=== PATIENT | female | born 1955 | race Caucasian/White ===

== ENCOUNTER → 2022-04-17 11:19 | Outpatient (BNVA) | payer MEDICARE, OTHER, SELFPAY | PROVIDERS: PCP Family Medicine; Visit Provider Family Medicine | DX: E11.9 Type 2 diabetes mellitus without complications (principal); I10 Essential (primary) hypertension; J06.9 Acute upper respiratory infection, unspecified; J45.909 Unspecified asthma, uncomplicated; M79.7 Fibromyalgia; Z76.89 Persons encountering health services in other specified circumstances; J01.90 Acute sinusitis, unspecified; B96.89 Other specified bacterial agents as the cause of diseases classified elsewhere | CPT/HCPCS: 80053; 80061; 83036; 84443; 85025; 86140 ==

== ENCOUNTER → 2022-05-12 11:07 | Outpatient (BNVA) | payer OTHER, MEDICARE, SELFPAY | PROVIDERS: PCP Family Medicine; Visit Provider Family Medicine | DX: M79.7 Fibromyalgia (principal); R79.89 Other specified abnormal findings of blood chemistry; E11.9 Type 2 diabetes mellitus without complications | CPT/HCPCS: 84439; 84443; 84445; 84481; 86376 ==

== ENCOUNTER → 2022-07-10 10:21 | Outpatient (BNVA) | payer OTHER, MEDICARE, SELFPAY | PROVIDERS: PCP Family Medicine; Visit Provider Family Medicine | DX: R79.89 Other specified abnormal findings of blood chemistry (principal); E11.9 Type 2 diabetes mellitus without complications | CPT/HCPCS: 80048; 83036; 84439; 84443 ==

== ENCOUNTER 2022-09-23 15:28 | Emergency (ER) | payer OTHER, MEDICARE, SELFPAY ==
[2022-09-23] VITALS (7 sets, daily range): BP systolic 161–183; BP diastolic 99–116; PULSE 86–105; RESP 16–20; TEMP 36.7; O2SAT 91–97
[2022-09-23 17:53] LABS: Basophils % 0.2 %; Hematocrit 44.3 % (37.0-47.0); Lymphocytes # 0.5 10^3/uL (0.8-4.8); Lymphocytes % 9.6 %; Mean Corpuscular HGB Conc 33.9 g/dL (30.0-36.0); Mean Corpuscular Hemoglobin 32.7 pg (28.0-34.0); Mean Corpuscular Volume 96.5 fl (81-99); Mean Platelet Volume 9.3 fL (7.4-10.4); Monocytes # 0.5 10^3/uL (0.2-0.9); Monocytes % 9.4 %; Neutrophils # 3.96 10^3/uL (1.8-7.7); Neutrophils % 80.6 %; Nucleated Red Blood Cells % 0 %; Platelet Count 195 10^3/cmm (130-400); Red Blood Count 4.59 10^6/uL (4.1-5.3); Red Cell Distribution Width 12.1 % (12.1-15.1); White Blood Count 4.9 10^3/uL (4.0-10.0)
--- NOTE | 2022-09-23 18:20 | XRR_ITS ---
PROCEDURE INFORMATION: Exam: XR Chest Exam date and time: 09/23/2022 6:26 PM Age: 67 years old Clinical indication: Chest wall pain; Additional info: Cp TECHNIQUE: Imaging protocol: Radiologic exam of the chest. Views: 1 view. COMPARISON: No relevant prior studies available. FINDINGS: Lungs: Unremarkable. No consolidation. Pleural spaces: Unremarkable. No pleural effusion. No pneumothorax. Heart/Mediastinum: Unremarkable. No cardiomegaly. Bones/joints: Unremarkable. XR/XR chest 1V portable [id number] IMPRESSION: No acute findings.
--- NOTE | 2022-09-23 18:29 | W.ED.GENADLT ---
HPI - General Adult General: Chief complaint: Headache Stated complaint: Pain in whole body Time Seen by Provider: 09/23/22 18:12 Source: patient Mode of arrival: ambulatory Limitations: no limitations History of Present Illness: 67-year-old female who states she has been having pain all over over the last 2 days. She states it started with a headache and now she is hurting all over states she is got back some abdominal leg knee and arm pain. She states that this just is a sharp aching pain all over her body she rates a 7 out of 10 she states that headache is not the worst headache of life it was not sudden onset. She denies any fever she has had some nausea vomiting feels like she may be dehydrated. Associated symptoms: Reports chest pain, headache(s), nausea and vomiting; Deny dyspnea or rash Review of Systems Const: Reports: body aches and change in appetite; Denies: fever(s) or chills Eyes: Denies: blurry vision or eye discomfort ENMT: Denies: throat pain or dental pain Card: Reports: chest pain Resp: Denies: dyspnea GI: Reports: abdominal pain, nausea and vomiting; Denies: diarrhea : Denies: dysuria Musc: Reports: neck pain, back pain, extremity pain and joint pain Skin/Breast: Denies: rash Neuro: Reports: headache(s) PFSH ED PFSH: Family History Mother Diabetes Father Diabetes Social History Smoking and tobacco status: never smoked Second hand smoke exposure: No Smoking risk assessment/counseling performed?: No Alcohol intake: never Substance/Drug Use: never Adopted: No Caregiver/support person: No Lives independently: Yes Household members: family Marital status: Number of children: 0 service: No Current gender identity: Female Female Reproductive History: Spontaneous abortions: No Physical Exam Const: COMMON NORMALS: no acute distress, patient oriented x3 and healthy appearing HENMT: COMMON NORMALS: normocephalic and atraumatic HEAD & SCALP: normocephalic and atraumatic Eye: COMMON NORMALS: Equal, round and reactive pupils present and EOMs intact bilaterally PUPIL: Yes Equal, round and reactive pupils present Neck/C-Spine: COMMON NORMALS: full ROM and supple Chest: COMMONS NORMALS: normal inspection of the chest and normal palpation of entire chest wall Resp: COMMON NORMALS: normal respiratory effort, No retractions, No use of accessory muscles and clear to auscultation bilaterally AUSCULTATION: clear to auscultation bilaterally Cardio: COMMON NORMALS: regular rate, regular rhythm and No murmurs present (Cardio) RATE: regular rate RHYTHM: regular rhythm GI: COMMON NORMALS: Normal to inspection, nondistended, normoactive bowel sounds present, Soft to palpation, non-tender and no masses PALPATION: Yes Soft to palpation Extremity: COMMON NORMALS: normal to inspection and full ROM Neuro: COMMON NORMALS: patient oriented x3, moves all extremities and no focal motor deficits Psych: COMMON NORMALS: mental status grossly normal, Normal thought process present and cooperative THOUGHT PROCESS: Normal thought process present Skin: COMMON NORMALS: no rashes or lesions noted and no wounds GENERAL SKIN EXAM: no rashes or lesions noted Course Vital Signs: Vital signs: Vital Signs Temperature 98.0 F 09/23/22 15:42 Pulse Rate 86 09/23/22 20:09 Respiratory Rate 20 H 09/23/22 18:57 Blood Pressure 183/108 09/23/22 20:09 Pulse Oximetry 96 09/23/22 20:09 Oxygen Delivery Me thod Room Air 09/23/22 20:09 MDM - General Adult Medical Decision Making Patient presents here with headache along with full body aches she is well-appearing here no fever vital signs are normal blood work here is normal no signs of meningitis or subarachnoid hemorrhage her head CT is normal she feels improved here after meds we will prescribe her hydrocodone she is to follow-up with her PCP and return if worsening. Medical Records I reviewed the patient's medical records. Lab Data I reviewed the patient's lab results. 09/23/22 17:46 09/23/22 17:46 Radiology Impressions Chest X-Ray 09/23/22 18:20 IMPRESSION: No acute findings. Head CT 09/23/22 18:44 IMPRESSION: No acute intracranial abnormality. Laboratory Results WBC 4.9 10^3/uL (4.0-10.0) 09/23/22 17:46 RBC 4.59 10^6/uL (4.1-5.3) 09/23/22 17:46 Hgb 15.0 g/dL (11.5-15.3) 09/23/22 17:46 Hct 44.3 % (37.0-47.0) 09/23/22 17:46 MCV 96.5 fl (81-99) 09/23/22 17:46 MCH 32.7 pg (28.0-34.0) 09/23/22 17:46 MCHC 33.9 g/dL (30.0-36.0) 09/23/22 17:46 RDW 12.1 % (12.1-15.1) 09/23/22 17:46 Plt Count 195 10^3/cmm (130-400) 09/23/22 17:46 MPV 9.3 fL (7.4-10.4) 09/23/22 17:46 Neut % (Auto) 80.6 % 09/23/22 17:46 Lymph % (Auto) 9.6 % 09/23/22 17:46 [place] % (Auto) 9.4 % 09/23/22 17:46 Eos % (Auto) 0.0 % 09/23/22 17:46 Baso % (Auto) 0.2 % 09/23/22 17:46 Neut # (Auto) 3.96 10^3/uL (1.8-7.7) 09/23/22 17:46 Lymph # (Auto) 0.5 10^3/uL (0.8-4.8) L 09/23/22 17:46 [place] # (Auto) 0.5 10^3/uL (0.2-0.9) 09/23/22 17:46 Eos # (Auto) 0.0 10^3/uL (0.0-0.8) 09/23/22 17:46 Baso # (Auto) 0.0 10^3/uL (0.0-0.1) 09/23/22 17:46 Nucleated RBC % (auto) 0 % 09/23/22 17:46 Nucleated RBCs # 0.0 /100WBC 09/23/22 17:46 Sodium 134 mmol/L (136-145) L 09/23/22 17:46 Potassium 4.1 mmol/L (3.5-5.1) 09/23/22 17:46 Chloride 101 mmol/L (98-107) 09/23/22 17:46 Carbon Dioxide 22 mmol/L (22-29) 09/23/22 17:46 Anion Gap 15.1 (5-19) 09/23/22 17:46 BUN 17 mg/dL (8-23) 09/23/22 17:46 Creatinine 0.7 mg/dL (0.5-0.9) 09/23/22 17:46 GFR Calculation 83.5 mL/min (90-130) L 09/23/22 17:46 Glucose 158 mg/dL (65-115) H 09/23/22 17:46 Calculated Osmolality 283 mOsm/kg (285-295) L 09/23/22 17:46 Calcium 8.8 mg/dL (8.5-10.5) 09/23/22 17:46 Total Bilirubin 0.2 mg/dL (0.15-1.2) 09/23/22 17:46 AST 16 U/L (0-32) 09/23/22 17:46 ALT 17 U/L (0-33) 09/23/22 17:46 Alkaline Phosphatase 69 U/L (35-105) 09/23/22 17:46 Total Protein 7.0 g/dL (6.6-8.7) 09/23/22 17:46 Albumin 4.1 g/dL (3.5-5.2) 09/23/22 17:46 Globulin 2.9 g/dL (1.3-4.6) 09/23/22 17:46 Lipase 14 U/L (13-60) 09/23/22 17:46 EKG Data EKG 1: I personally reviewed and interpreted this EKG as follows: EKG interpretation date: 09/23/22 EKG interpretation time: 18:31 Interpretation: nsr hr [address] or t wave abnormalities qrs 85 qtc 399 Computer generated interpretation: Chest X-Ray 09/23/22 18:20 IMPRESSION: No acute findings. Head CT 09/23/22 18:44 IMPRESSION: No acute intracranial abnormality. Discharge Plan Discharge Patient Disposition: Home Clinical Impression: Headache, Body aches Condition: Stable Prescriptions: New hydrocodone-acetaminophen 5-325 mg tablet 1 tab PO Q6H PRN (Reason: pain) Qty: 14 0RF No Action meloxicam 15 mg tablet 15 mg PO DAILY Qty: 60 5RF Hold Instructions: Order Change metformin 1,000 mg tablet 1,000 mg PO BID Qty: 180 1RF verapamil 120 mg capsule,ext rel. pellets 24 hr 120 mg PO DAILY Qty: 90 1RF duloxetine 60 mg capsule,delayed release(DR/EC) 60 mg PO DAILY Qty: 90 1RF prednisone 20 mg tablet See Rx Instructions .Route .COMPLEX Qty: 11 0RF Rx Instructions: 2 tabs x 3 days, then 1 tab x 3 days, then 1/2 tab x 3 days. glipizide 10 mg tablet See Rx Instructions .ROUTE .COMPLEX Qty: 60 2RF Dose Instruction: TAKE 1/2 TAB DAILY FOR 1 WEEK, THEN 1/2 TAB TWICE DAILY FOR 1 WEEK, THEN 1 TAB TWICE DAILY Rx Instructions: TAKE 1/2 TAB DAILY FOR 1 WEEK, THEN 1/2 TAB TWICE DAILY FOR 1 WEEK, THEN 1 TAB TWICE DAILY Discharge Orders: Discharge ED (Routine); Ordered 09/23/22 Ordered By: Vicky Carrasco Referrals: Pantera Wang, [Primary Care Provider] - 1-3 days Discharge Diet: Advance as tolerated Discharge Activity: Resume usual activity Patient Instructions: General Headache (ED) Coding Level of Care Code ED Project Structural Engineer for Dre Mcguire
--- NOTE | 2022-09-23 18:31 | ECG_ITS ---
[facility] Test Date: 2022-09-23 Pat Name: Chiquita Madden Department: Room: Gender: Female Sas Clinical Programmer: : 1955 Requested By: Vicky Carrasco Order Number: [id number] Leno MD: Caitlyn Luis M.D. Measurements Intervals [place] Rate: 90 P: 18 ND: 164 QRS: 16 QRSD: 85 T: 31 QT: 352 QTc: 431 Interpretive Statements SINUS RHYTHM No previous ECG available for comparison Electronically Signed On 09-24-2022 0:22:14 CDT by Caitlyn Luis M.D. [email or web address]
[2022-09-23 18:35] LABS: Alanine Aminotransferase 17 U/L (0-33); Albumin Level 4.1 g/dL (3.5-5.2); Alkaline Phosphatase 69 U/L (35-105); Anion Gap 15.1 (5-19); Aspartate Amino Transferase 16 U/L (0-32); Blood Urea Nitrogen 17 mg/dL (8-23); Calcium 8.8 mg/dL (8.5-10.5); Carbon Dioxide 22 mmol/L (22-29); Chloride 101 mmol/L (98-107); Globulin 2.9 g/dL (1.3-4.6); Glucose 158 mg/dL (65-115); Lipase 14 U/L (13-60); Osmolality Calculated 283 mOsm/kg (285-295); Potassium 4.1 mmol/L (3.5-5.1); Sodium 134 mmol/L (136-145); Total Bilirubin 0.2 mg/dL (0.15-1.2)
--- NOTE | 2022-09-23 18:44 | CTR_ITS ---
PROCEDURE INFORMATION: Exam: CT Head Without Contrast Exam date and time: 09/23/2022 7:12 PM Age: 67 years old Clinical indication: Pain; Headache; Additional info: [place] TECHNIQUE: Imaging protocol: Computed tomography of the head without contrast. Radiation optimization: All CT scans at this facility use at least one of these dose optimization techniques: automated exposure control; mA and/or kV adjustment per patient size (includes targeted exams where dose is matched to clinical indication); or iterative reconstruction. REPORTING DATA: Count of CT and Cardiac NM exams in prior 12 months: This patient has received 0 known CTs and 0 known cardiac nuclear medicine studies in the 12 months prior to the current study. COMPARISON: No relevant prior studies available. RADIATION DOSE METRICS: Total DLP (mGy-cm): 1010 FINDINGS: Brain: Normal. No hemorrhage. Unremarkable white matter. No mass effect. Cerebral ventricles: No ventriculomegaly. Paranasal sinuses: Visualized sinuses are unremarkable. No fluid levels. Mastoid air cells: Visualized mastoid air cells are well aerated. Bones/joints: Unremarkable. No acute fracture. Soft tissues: Unremarkable. CT/CT head wo con* [id number] IMPRESSION: No acute intracranial abnormality.
[2022-09-23] MEDS: ondansetron 2 mg/ML SDV 2 mL 4 MG IVP (18:48)
[2022-09-23] MEDS: diphenhydrAMINE 50 mg/mL SDV 1mL 25 MG IVP (18:48)
[2022-09-23] MEDS: HYDROmorphone 1 mg/mL INJ 1 mL 0.5 MG IVP (18:49)
[2022-09-23] MEDS: sodium chloride 0.9% 1,000 ML 999 ML IV (18:58)
[2022-09-23 19:01] LABS: Glomerular Filtration Rate 83.5 mL/min (90-130)
--- NOTE | 2022-09-23 19:48 | PC.NURSE ---
Nurse attempted to obtain urine specimen. Pt stated that she would not produce a urine specimen at this time. Dr Carrasco notified.
[2022-09-23] MEDS: labetalol 5 mg/mL SDV 20mL 10 MG IVP (20:18)
== END 2022-09-23 21:12 | disposition home or self-care (01) ==
PROVIDERS: Nurse Practitioner Family; Emergency Provider Emergency Medicine; PCP Family Medicine
DX: R51.9 Headache, unspecified (principal); R52 Pain, unspecified; Z79.84 Long term (current) use of oral hypoglycemic drugs
CPT/HCPCS: 36415; 70450; 71045; 80053; 83690; 85025; 93005; 96374; 96375; 99285; J1170; J1200; J2405; J3490; J7030

== ENCOUNTER → 2022-10-01 13:01 | Outpatient (BNVA) | payer OTHER, MEDICARE, SELFPAY | PROVIDERS: PCP Family Medicine; Visit Provider Specialist | DX: M65.332 Trigger finger, left middle finger (principal); E11.9 Type 2 diabetes mellitus without complications; M79.7 Fibromyalgia; Z79.84 Long term (current) use of oral hypoglycemic drugs | CPT/HCPCS: 36415; 73130; 80053; 81001; 83036; 85025; 85651; 86140; 86200; 86431; 86705; 86706; 86709; 86803; 87340; 99204 ==

== ENCOUNTER 2022-10-24 06:50 | Day surgery (SDC) | payer MEDICARE, OTHER, SELFPAY ==
[2022-10-24] VITALS (10 sets, daily range): BP systolic 136–178; BP diastolic 104–120; PULSE 68–91; RESP 14–16; TEMP 36.1–36.3; O2SAT 94–99; BMI 29.0
--- NOTE | 2022-10-24 07:11 | W.PM.OPSUD ---
Surgery/Procedure H&P Update DATE OF PROCEDURE: October 24, 2022 DATE H&P PERFORMED: 10/15/22 H&P UPDATE INFORMATION: I have reviewed H&P completed within last 30 days, I have examined patient prior to procedure, No changes to prior documentation and H&P is in [facility] EMR on date indicated PLANNED PROCEDURE: Operation Date: 10/24/22 08:25 Proposed Procedures p LEFT HAND LONG FINGER TRIGGER RELEASE 55153, M65.30(Left) - Yarely Hurd MD Related Problem List Diagnoses (1) Trigger finger, left middle finger:
[2022-10-24] MEDS: sodium chloride 0.9% 1,000 ML 30 ML IV (07:18)
[2022-10-24] MEDS: acetaminophen 1,000 MG/100 ML PIGGYBACK 400 MG IV (07:19)
--- NOTE | 2022-10-24 07:19 | ANES.PREANE2 ---
Pre-Anesthetic Assessment Height/Weight: Height 1.7 m Weight 83.915 kg Temp Pulse Resp BP Pulse Ox O2 Del Method 97.2 F L 91 16 178/120 96 Room Air 10/24/22 07:05 10/24/22 07:05 10/24/22 07:05 10/24/22 07:05 10/24/22 07:05 10/24/22 07:05 Preop Diagnosis: trigger finger Operation Date: 10/24/22 08:25 Proposed Procedures p LEFT HAND LONG FINGER TRIGGER RELEASE [id number], M65.30(Left) - Yarely Hurd MD Familial anesthetic complications: PONV Was Beta Naren taken within 24 hours: N/A Last intake: Intake Last Liquid Date 10/23/22 Last Liquid Time 00:00 Last Solid Date 10/23/22 Last Solid Time 22:00 Social No alcohol and No tobacco Exam alert, oriented x 3, clear to auscultation bilaterally and regular rate & rhythm Airway Submandibular: within normal limits Cervical ROM: within normal limits Mallampati: Class III Dentition: full Comments: Comments: thyromental distance <3 finger breaths Pulmonary Asthma and Sleep Apnea CV/HEM Arrythmia (intermittent tachycardia (rare) previous cardiac workup per patient) and Hypertension None reported Hepatic None reported GI None reported Metabolic Diabetes Mellitus [facility] Fibromyalgia Neuropsych None reported Anesthetic Plan ASA status: 2 Anesthesia: Choice Other: TIVA due to PONV Medications/Allergies Home Medications Medication Instructions Recorded Confirmed Last Taken Type meloxicam 15 mg tablet 15 mg PO DAILY #60 tabs 07/15/22 10/23/22 10/21/22 Rx hydrocodone 5 mg-acetaminophen 325 1 tab PO Q6H PRN pain #14 tabs 09/23/22 10/23/22 Unknown Rx mg tablet glipizide 10 mg tablet See Rx Instructions .Route 09/29/22 10/23/22 10/22/22 Rx .COMPLEX #180 tabs amitriptyline 25 mg tablet 25 mg PO DAILY #30 tabs 10/02/22 10/24/22 Unknown Rx gabapentin 600 mg tablet 300 mg PO BID #60 tabs 10/02/22 10/23/22 Unknown Rx duloxetine 60 mg capsule,delayed 60 mg PO DAILY 10/23/22 10/23/22 10/22/22 History release metformin 1,000 mg tablet 1,000 mg PO BID 10/23/22 10/23/22 10/22/22 History verapamil 120 mg 24 hr 120 mg PO BID 10/23/22 10/23/22 10/22/22 History capsule,extended release hydrocodone 5 mg-acetaminophen 325 1 tab PO Q4H PRN pain 7 days #30 10/24/22 Unknown Rx mg tablet tabs loratadine 10 mg tablet 10 mg PO DAILY 10/24/22 10/24/22 10/24/22 History Allergies Allergy/AdvReac Type Severity Reaction Status Date / Time azithromycin Allergy Mild ADR-Vomitin Verified 10/15/22 09:22 g PFSH Anesthesia Medical History (Updated 10/24/22 @ 07:14 by Yarely Hurd MD) Essential hypertension Non-insulin dependent type 2 diabetes mellitus Surgical History (Updated 10/15/22 @ 09:19 by Patricio Tamez NP) Hx of appendectomy Hx of cholecystectomy Hx of foot surgery Hx of hysterectomy Hx of ovarian cystectomy Family History (Updated 10/15/22 @ 09:20 by Patricio Tamez NP) Mother Diabetes Father Diabetes Denies family history of Clotting disorder Anesthesia complication Bleeding disorder Social History Smoking and tobacco status: never smoked Second hand smoke exposure: No Smoking risk assessment/counseling performed?: No Alcohol intake: never Substance/Drug Use: never Adopted: No Caregiver/support person: No Lives independently: Yes Household members: family Marital status: Number of children: 0 service: No Current gender identity: Female Female Reproductive History Spontaneous abortions: No Data Anesthesia Cardiac Studies: No Data to Display
[2022-10-24] MEDS: CELEcoxib 200 mg Capsule 400 MG PO (07:20)
[2022-10-24] MEDS: gabapentin 300 mg Capsule PO (07:21)
[2022-10-24] MEDS: ondansetron 2 mg/ML SDV 2 mL 4 MG IVP (07:24)
[2022-10-24] MEDS: scopolamine 1.5 Patch 1 PATCH TRANSDERMA (07:24)
[2022-10-24] MEDS: diphenhydrAMINE 50 mg/mL SDV 1mL 12.5 MG IVP (07:26)
[2022-10-24 07:27] LABS: Glucose Point of Care 166 mg/dL (70-110)
[2022-10-24] MEDS: ceFAZolin 2,000 MG in sodium chloride 0.9% (plus) 50 ML 100 MG IV (08:40)
--- NOTE | 2022-10-24 09:39 | PM.OP ---
Operative Report Date of procedure: October 24, 2022 Pre-op diagnosis: Left middle finger trigger finger Post-op diagnosis: Left middle finger trigger finger Post-op findings: Significant inflammation and thickening of the A1 pete and tendons. Procedure done: Release left middle finger trigger finger Pathology: none sent Surgeon: Yarely Hurd Java Web Application Developer: None Anesthesia: MAC (With local, ASA 2) Estimated blood loss (mL): 1 Tourniquet time (min): 17 (At 250 mmHg) IV fluids (mL): 800 Urine output (mL): 0 (No Armstrong) Complications: None Findings: Significant tenosynovitis and thickening of the A1 pete Condition: stable Disposition: PACU (Then return to same-day surgery for discharge to home) Brief History: Chiquita Madden is a 67 year old female patient who is presents today for left middle finger trigger finger release.? She states the triggering has been going on for 2 months and sends pain up her entire arm. The patient was seen in the office. Treatment options were discussed and questions were answered. She wished to proceed with left long finger trigger release. Consents were signed. Procedure: Patient was brought to the operating theater. She was placed on the operating room table. A MAC anesthesia was delivered along with local on the field. The patient tolerated this well. She received Ancef 2 g prophylactically preoperatively. A tourniquet was placed high on the arm and was elevated following exsanguination of the arm. Tourniquet time was 17 minutes at 250 mmHg. Surgical pause was performed prior to commencement of the surgical procedure. At the time of the surgical pause we identified the site and side of surgery. We also identified the patient's identity and appropriate administration of IV antibiotics. Following the surgical pause, an incision was made along the distal palmar crease beneath the long finger. Dissection continued through the skin to the subcutaneous tissues using a scalpel. Blunt dissection was then utilized to spread soft tissues and allow access to the A1 pete. It was then incised longitudinally and sharply using a knife. This was accomplished without difficulty and atraumatically. Once the A1 pete was released, tendons were brought up out of the wound and evaluated. There were no gross masses on the tendons. Tendons were returned to normal position. We then irrigated the wound and subsequently closed it with 3-0 nylon with an interrupted mattress type suture. Following closure of the wound, the wound was injected with local anesthetic into the subcutaneous tissues. Sterile dressing was then placed consisting of Dermabond, OpSite, fluffed fluffs, sterile soft roll, and an Santos wrap. The patient was returned to recovery in satisfactory condition. She will be discharged home to follow-up with me in the office. There were no complications and no specimens. Related Problem List Diagnoses (1) Trigger finger, left middle finger:
--- NOTE | 2022-10-24 17:27 | ANE.PACU2 ---
Inpatient post-anesthesia follow up: Airway intact: Yes Vital signs: Temperature 97.4 F Pulse Rate 70 Respiratory Rate 16 Blood Pressure 173/114 Pulse Oximetry 97 Oxygen Delivery Me thod Room Air Oxygen Flow Rate 6 Fraction of Inspir ed Oxygen Hydration adequate: Yes Nausea and vomiting: No Pain level: 2 Mental status: Baseline
== END 2022-10-24 10:35 | disposition home or self-care (01) ==
PROVIDERS: PCP Family Medicine; Visit Provider Specialist
PROC: (CPT 26055; principal; 2022-10-24 08:15)
DX: M65.332 Trigger finger, left middle finger (principal); J45.909 Unspecified asthma, uncomplicated; E11.9 Type 2 diabetes mellitus without complications; Z79.891 Long term (current) use of opiate analgesic; Z79.4 Long term (current) use of insulin; I10 Essential (primary) hypertension
CPT/HCPCS: 26055; 36416; 82962; J0131; J0690; J1200; J2405; J2704; J3010; J3490; J7030

== ENCOUNTER → 2022-11-06 08:47 | Outpatient (BNVA) | payer MEDICARE, OTHER, SELFPAY | PROVIDERS: PCP Family Medicine; Visit Provider Nurse Practitioner Family | DX: Z98.890 Other specified postprocedural states (principal) | CPT/HCPCS: 99024 ==

== ENCOUNTER → 2022-12-17 09:16 | Outpatient (BNVA) | payer MEDICARE, OTHER, SELFPAY | PROVIDERS: PCP Family Medicine; Visit Provider Specialist | DX: M25.562 Pain in left knee (principal); M17.12 Unilateral primary osteoarthritis, left knee; G89.29 Other chronic pain | CPT/HCPCS: 73560; 73565; 99214 ==

== ENCOUNTER → 2023-02-16 11:00 | Outpatient (BNVA) | payer MEDICARE, OTHER, SELFPAY | PROVIDERS: PCP Family Medicine; Visit Provider Family Medicine | DX: I10 Essential (primary) hypertension (principal); E11.9 Type 2 diabetes mellitus without complications; Z00.00 Encounter for general adult medical examination without abnormal findings; M79.7 Fibromyalgia | CPT/HCPCS: 80053; 80061; 83036; 84443; 85025 ==

== ENCOUNTER → 2023-02-23 16:56 | Outpatient (BNVA) | payer MEDICARE, OTHER, SELFPAY | PROVIDERS: PCP Family Medicine; Visit Provider Family Medicine | DX: I10 Essential (primary) hypertension (principal); M54.2 Cervicalgia; G89.29 Other chronic pain; M25.562 Pain in left knee; M79.7 Fibromyalgia; M17.12 Unilateral primary osteoarthritis, left knee; R26.89 Other abnormalities of gait and mobility | CPT/HCPCS: 81003 ==

== ENCOUNTER 2023-03-04 14:59 | Outpatient (CLI) | payer MEDICARE, SELFPAY ==
--- NOTE | 2023-03-04 15:30 | MM_ITS ---
WS: [id number] BILATERAL 3D TOMOSYNTHESIS DIGITAL SCREENING MAMMOGRAPHY WITH CAD CLINICAL INFORMATION: SCREEN HISTORY: Screening mammogram. No current complaints. COMPARISON: None. TECHNIQUE: Bilateral CC and MLO views. FINDINGS: Scattered fibroglandular densities bilaterally. No suspicious focal mass, asymmetry, calcifications, or architectural distortion. No evidence of malignancy. A few incidental punctate calcifications. IMPRESSION: MM/[place] [id number] BI-RADS: 2-Benign FOLLOW UP: 1 Year Follow-up Recommend return to annual screening mammography.
== END 2023-03-04 15:00 | disposition home or self-care (01) ==
LOC: RAD 15:00
PROVIDERS: PCP Family Medicine; Visit Provider Family Medicine
DX: Z12.31 Encounter for screening mammogram for malignant neoplasm of breast (principal)
CPT/HCPCS: 77063; 77067

== ENCOUNTER 2023-04-09 10:47 | Outpatient (RCR) | payer MEDICARE, OTHER, SELFPAY | END 2023-05-06 23:59 | disposition home or self-care (01) | LOC: SPT 10:47 | PROVIDERS: PCP Family Medicine; Visit Provider Family Medicine | DX: M54.2 Cervicalgia (principal); M25.562 Pain in left knee; M79.7 Fibromyalgia | CPT/HCPCS: 97113; 97161 ==

== ENCOUNTER 2023-05-07 06:00 | Outpatient (RCR) | payer MEDICARE, OTHER, SELFPAY | END 2023-06-04 23:59 | disposition home or self-care (01) | LOC: SPT 06:00 | PROVIDERS: PCP Family Medicine; Visit Provider Family Medicine | DX: M54.2 Cervicalgia (principal); G89.29 Other chronic pain; M79.7 Fibromyalgia | CPT/HCPCS: 97113; 97530 ==

== ENCOUNTER 2023-05-20 20:00 | Outpatient (CLI) | payer MEDICARE, OTHER, SELFPAY | END 2023-05-20 20:01 | disposition home or self-care (01) | LOC: SLEEP 05-21 05:08 | PROVIDERS: PCP Family Medicine; Visit Provider Family Medicine | DX: G47.33 Obstructive sleep apnea (adult) (pediatric) (principal); G47.61 Periodic limb movement disorder | CPT/HCPCS: 95810 ==

== ENCOUNTER → 2023-05-27 07:44 | Outpatient (BNVA) | payer MEDICARE, OTHER, SELFPAY | PROVIDERS: PCP Family Medicine; Visit Provider Specialist | DX: M17.12 Unilateral primary osteoarthritis, left knee (principal) | CPT/HCPCS: 20610; 99213; J7326 ==

== ENCOUNTER → 2023-06-23 12:15 | Outpatient (BNVA) | payer MEDICARE, SELFPAY | PROVIDERS: PCP Family Medicine; Visit Provider Family Medicine | DX: E11.9 Type 2 diabetes mellitus without complications (principal) | CPT/HCPCS: 83036 ==

== ENCOUNTER → 2023-07-17 13:28 | Outpatient (BNVA) | payer MEDICARE, OTHER, SELFPAY | PROVIDERS: PCP Family Medicine; Visit Provider Family Medicine | DX: E11.9 Type 2 diabetes mellitus without complications (principal); E87.6 Hypokalemia; M79.7 Fibromyalgia | CPT/HCPCS: 80048; 80061; 83036; 84439; 84443 ==

== ENCOUNTER 2023-08-23 11:30 | Emergency (ER) | payer MEDICARE, SELFPAY ==
[2023-08-23 11:34] VITALS: BP 131/91; PULSE 102; RESP 18; TEMP 36.6; O2SAT 93
--- NOTE | 2023-08-23 11:39 | XRR_ITS ---
PROCEDURE INFORMATION: Exam: XR Left Knee Exam date and time: 08/23/2023 2:08 PM Age: 68 years old Clinical indication: Injury or trauma; Other: Lt knee pain; Patient HX: Lt kneepain post fall; Additional info: Lt shoulder pain post fall TECHNIQUE: Imaging protocol: Radiologic exam of the left knee. Views: 3 views. COMPARISON: CR XR knees AP WB w LT lmt ORTH 12/17/2022 9:18 AM FINDINGS: Bones/joints: There is mild spurring involving the medial femoral condyle and medial tibial plateau along with mild narrowing of the medial joint space. No fracture or joint effusion noted. Soft tissues: Normal. XR/XR knee LT 3V* [id number] IMPRESSION: Osteoarthritis without fracture
--- NOTE | 2023-08-23 13:13 | W.ED.EXTPRO ---
HPI - Extremity Problem General: Chief complaint: Extremity Injury, Lower Stated complaint: left knee pain Time Seen by Provider: 08/23/23 13:11 History of Present Illness: 68-year-old female comes in today for complaints of injury to the left knee. Patient reports tripping over her dog and striking her left knee on the ground. Patient reports pain and discomfort to the left knee. Patient reports increased pain with weightbearing. Patient moves all extremities otherwise well. Patient has a history of fibromyalgia, diabetes mellitus type 2, hypertension. Review of Systems General: Reports: 10 or more systems reviewed and unremarkable except in HPI and below Musc: Reports: joint pain (Left knee) PFSH ED PFSH: Medical History Essential hypertension Non-insulin dependent type 2 diabetes mellitus Surgical History Hx of appendectomy Hx of hysterectomy Hx of cholecystectomy Hx of foot surgery Hx of ovarian cystectomy Family History Mother Diabetes Father Diabetes Denies family history of Clotting disorder Anesthesia complication Bleeding disorder Social History Smoking and tobacco/nicotine status: never used tobacco/nicotine Second hand smoke exposure: No Alcohol intake: never Substance/Drug Use: never Adopted: No Caregiver/support person: No Lives independently: Yes Household members: family Marital status: Number of children: 0 service: No Current gender identity: Female Female Reproductive History: Spontaneous abortions: No Physical Exam Const: COMMON NORMALS: alert HENMT: COMMON NORMALS: normocephalic HEAD & SCALP: normocephalic Neck/C-Spine: COMMON NORMALS: full ROM Chest: COMMONS NORMALS: normal palpation of entire chest wall Resp: COMMON NORMALS: normal respiratory effort and clear to auscultation bilaterally AUSCULTATION: clear to auscultation bilaterally Cardio: COMMON NORMALS: regular rate and regular rhythm RATE: regular rate RHYTHM: regular rhythm GI: COMMON NORMALS: non-tender Back/Pelvis: COMMON NORMALS: thoracic and lumbar spine normal to inspection Extremity: LEFT LOWER EXTREMITY: Yes knee joint (Anterior abrasion, minimal swelling, no deformity) Left knee: Yes inspection, Yes palpation and Yes ROM Neuro: SENSORIUM/ORIENTATION: Yes alert Skin: TRAUMA: abrasion (Left knee) Course Vital Signs: Vital signs: Vital Signs Temperature 98 F 08/23/23 11:34 Pulse Rate 102 H 08/23/23 11:34 Respiratory Rate 18 08/23/23 11:34 Blood Pressure 131/91 08/23/23 11:34 Pulse Oximetry 93 08/23/23 11:34 Oxygen Delivery Me thod Room Air 08/23/23 11:34 MDM - Extremity (Nontraumatic) Medical Decision Making Patient comes in today for injury to the left knee. On exam patient has an abrasion to the anterior aspect of the knee. Minimal swelling and normal range of motion is noted. Patient has increased pain with ambulation. Differential diagnosis includes contusion, abrasion, fracture, dislocation. X-rays noted arthritic changes in the shoulder and the knee without any signs of fracture. No signs of dislocation or also noted. Reviewed exam with patient with recommendations for treatment and follow-up. Patient reported understanding agreed to plan. X-ray notes no fracture. Reviewed exam with patient with recommendations for treatment of abrasion and for treatment of pain. Patient reports understanding and agreed to plan. XR interpretation done by ED provider, pending radiology final review Discharge Plan Discharge Patient Disposition: Home Clinical Impression: Fall from slip, trip, or stumble Qualifiers: Encounter type: initial encounter Qualified Code(s): W01.0XXA - Fall on same level from slipping, tripping and stumbling without subsequent striking against object, initial encounter Abrasion of knee, left Qualifiers: Encounter type: initial encounter Qualified Code(s): S80.212A - Abrasion, left knee, initial encounter Left shoulder pain Qualifiers: Chronicity: unspecified Qualified Code(s): M25.512 - Pain in left shoulder Condition: Stable Prescriptions: New hydrocodone-acetaminophen 5-325 mg tablet 1 tab PO Q6H PRN (Reason: pain) Qty: 10 0RF bacitracin 500 unit/gram ointment 1 applic topical BID Qty: 14 0RF No Action Gel-One 30 mg/3 mL syringe 3 ml intra-articular ONCE Qty: 3 0RF Rx Instructions: One injection to the left knee Appt: Pending metformin 1,000 mg tablet See Rx Instructions .ROUTE .COMPLEX Qty: 180 2RF Dose Instruction: TAKE 1 TABLET BY MOUTH TWICE A DAY Rx Instructions: TAKE 1 TABLET BY MOUTH TWICE A DAY glipizide 5 mg tablet 5 mg PO BID Qty: 60 5RF lisinopril 40 mg tablet 40 mg PO DAILY Qty: 90 3RF duloxetine 60 mg capsule,delayed release(DR/EC) See Rx Instructions .ROUTE .COMPLEX Qty: 90 1RF Dose Instruction: TAKE 1 CAPSULE BY MOUTH EVERY DAY Rx Instructions: TAKE 1 CAPSULE BY MOUTH EVERY DAY verapamil 120 mg capsule,ext rel. pellets 24 hr See Rx Instructions .ROUTE .COMPLEX Qty: 90 1RF Dose Instruction: TAKE 1 CAPSULE BY MOUTH EVERY DAY Rx Instructions: TAKE 1 CAPSULE BY MOUTH EVERY DAY celecoxib 100 mg capsule See Rx Instructions .ROUTE .COMPLEX Qty: 60 2RF Dose Instruction: TAKE 1 TABLET BY MOUTH TWICE A DAY Rx Instructions: TAKE 1 TABLET BY MOUTH TWICE A DAY loratadine 10 mg Tablet 10 mg PO DAILY Discharge Orders: Discharge ED (Routine); Ordered 08/23/23 Ordered By: Renzo Thibodeaux Referrals: Pantera Wang, [Primary Care Provider] - Discharge Diet: Usual diet Discharge Activity: Increase activity as tolerated Patient Instructions: Abrasion (ED), Musculoskeletal Pain (ED) Activity Restrictions/Additional Instructions: Clean abrasion with mild soap and water twice a day and cover with antibiotic ointment until healed. Use acetaminophen and ibuprofen to control pain. Use hydrocodone for severe pain. Follow-up with primary care for further instructions. Return to ED for new concerns. Coding Level of Care Code ED Car Sales Representative for Dre Mcguire
[2023-08-23] MEDS: HYDROcodone-acetaminophen 10-325 mg Tablet 1 TAB PO (14:04)
--- NOTE | 2023-08-23 14:07 | XRR_ITS ---
PROCEDURE INFORMATION: Exam: XR Left Shoulder Exam date and time: 08/23/2023 2:08 PM Age: 68 years old Clinical indication: Injury or trauma; Patient HX: Lt shoulder pain post fall TECHNIQUE: Imaging protocol: Radiologic exam of the left shoulder. Views: 2 or more views. COMPARISON: CR XR chest 1V portable [id number] 09/23/2022 6:26 PM FINDINGS: Bones/joints: Prominent spurring involves the humeral head and glenoid fossa and there is prominent narrowing of the glenohumeral joint space. No fracture noted. Arthritic change also involves the AC joint. Soft tissues: Normal. XR/XR shoulder LT min 2V* [id number] IMPRESSION: 1. No acute findings. 2. Arthritic changes noted
[2023-08-23 14:50] VITALS: BP 131/91; PULSE 102; RESP 18; TEMP 36.6; O2SAT 93
== END 2023-08-23 15:00 | disposition home or self-care (01) ==
PROVIDERS: Emergency Provider Nurse Practitioner Family; PCP Family Medicine
DX: S80.212A Abrasion, left knee, initial encounter (principal); M25.512 Pain in left shoulder; I10 Essential (primary) hypertension; E11.9 Type 2 diabetes mellitus without complications; Z79.84 Long term (current) use of oral hypoglycemic drugs; Z79.899 Other long term (current) drug therapy; W01.0XXA Fall on same level from slipping, tripping and stumbling without subsequent striking against object, initial encounter
CPT/HCPCS: 73030; 73562; 99284

== ENCOUNTER 2024-06-08 04:29 | Emergency (ER) | payer MEDICARE, SELFPAY ==
[2024-06-08 04:46] VITALS: BP 142/93; PULSE 110; RESP 18; TEMP 36.6; O2SAT 93; BMI 29.7
--- NOTE | 2024-06-08 05:13 | W.ED.NAVMDI ---
Documented by User: Marco Martinez DO 06/08/24 05:19 HPI - Nausea/Vomiting/Diarrhea General: Chief complaint: Nausea/Vomiting/Diarrhea Stated complaint: Vomiting Time Seen by Provider: 06/08/24 05:10 History of Present Illness: Patient presents to the ER by private vehicle with complaints of nausea vomiting diarrhea abdominal pain that began approximately 2 days ago. Patient also has diffuse abdominal pain. She does not she not been able to keep anything down during his time. She has never had anything quite like this before. Nothing difference that she done is her and her moved her mom to the intermediate on Thursday and this started on Thursday. has been around her the entire time and ate the same food does not have any symptoms. Patient has a history of appendectomy, hysterectomy, cholecystectomy Related Data Home Medications ?Medication ?Instructions ?Recorded ?Confirmed loratadine 10 mg tablet 10 mg PO DAILY 10/24/22 06/08/24 celecoxib 100 mg capsule 100 mg PO BID 06/08/24 06/08/24 duloxetine 60 mg capsule,delayed 60 mg PO DAILY 06/08/24 06/08/24 release glipizide 5 mg tablet 5 mg PO BID 06/08/24 06/08/24 metformin 1,000 mg tablet 1,000 mg PO BID 06/08/24 06/08/24 verapamil 120 mg 24 hr 120 mg PO DAILY 06/08/24 06/08/24 capsule,extended release Previous Rx's ?Medication ?Instructions ?Recorded azelastine 137 mcg-fluticasone 50 1 spray intranasal BID #23 grams 01/11/24 mcg/spray nasal spray cyclobenzaprine 10 mg tablet 10 mg PO TID PRN muscle spasm #60 01/11/24 tabs lisinopril 40 mg tablet 40 mg PO DAILY #90 tabs 01/11/24 zolpidem 10 mg tablet 10 mg PO .at bedtime #30 tabs 01/11/24 ondansetron 4 mg disintegrating 4 mg PO Q6H PRN nausea and 06/08/24 tablet vomiting #14 tabs Allergies Allergy/AdvReac Type Severity Reaction Status Date / Time azithromycin Allergy Mild ADR-Vomitin Verified 06/08/24 04:50 g Review of Systems General: Reports: 10 or more systems reviewed and unremarkable except in HPI and below PFSH ED PFSH: Medical History Essential hypertension Non-insulin dependent type 2 diabetes mellitus Surgical History Hx of appendectomy Hx of hysterectomy Hx of cholecystectomy Hx of foot surgery Hx of ovarian cystectomy Family History Mother Diabetes Father Diabetes Denies family history of Clotting disorder Anesthesia complication Bleeding disorder Social History Smoking and tobacco/nicotine status: never used tobacco/nicotine Second hand smoke exposure: No Alcohol intake: never Substance/Drug Use: never Adopted: No Caregiver/support person: No Lives independently: Yes Household members: family Marital status: Number of children: 0 service: No Current gender identity: Female Female Reproductive History: Spontaneous abortions: No Physical Exam Const: COMMON NORMALS: no acute distress, average body habitus, patient oriented x3, no limitations, healthy appearing, alert and well nourished HENMT: COMMON NORMALS: normocephalic, atraumatic, hearing grossly normal bilaterally, external ears normal, Normal external nose present, moist oral mucous membranes and oropharynx normal HEAD & SCALP: normocephalic and atraumatic NOSE: Normal external nose present EXTERNAL EAR: Yes external ears normal Neck/C-Spine: COMMON NORMALS: no JVD Chest: COMMONS NORMALS: normal inspection of the chest and normal palpation of entire chest wall Resp: COMMON NORMALS: normal respiratory effort, No retractions, No use of accessory muscles and clear to auscultation bilaterally AUSCULTATION: clear to auscultation bilaterally Cardio: COMMON NORMALS: no JVD, regular rhythm, S1 normal heart sound present, S2 normal heart sound present, No gallops present (Cardio), No clicks present (Cardio), No murmurs present (Cardio) and No rub (Cardio); negative for regular rate (Mildly tachycardic) RATE: abnormal rate (Mildly tachycardic) RHYTHM: regular rhythm HEART SOUNDS: S1 normal heart sound present and S2 normal heart sound present GI: COMMON NORMALS: Normal to inspection, nondistended, normoactive bowel sounds present, Soft to palpation, No hepatosplenomegaly present and no masses; negative for non-tender (Diffusely mildly tender) PALPATION: Yes Soft to palpation and Yes No hepatosplenomegaly present Neuro: COMMON NORMALS: patient oriented x3 SENSORIUM/ORIENTATION: Yes alert Course Vital Signs: Vital signs: Vital Signs Temperature 97.9 F 06/08/24 04:46 Pulse Rate 104 H 06/08/24 06:00 Respiratory Rate 16 06/08/24 06:00 Blood Pressure 142/93 06/08/24 04:46 Pulse Oximetry 94 06/08/24 06:00 Oxygen Delivery Me thod Room Air 06/08/24 05:50 MDM - Nausea/Vomiting/Diarrhea Medical Records I reviewed the patient's medical records. Lab Data I reviewed the patient's lab results. 06/08/24 05:39 06/08/24 05:39 Radiology Impressions Abdomen/Pelvis CT 06/08/24 05:48 IMPRESSION: Diarrhea. Diverticulosis. Small pancreatic cyst. Suggest MRI of the abdomen with and without intravenous contrast and MRCP to further assess. Laboratory Results WBC 8.17 10^3/uL (3.29-11.43) 06/08/24 05:39 RBC 4.70 10^6/uL (3.85-5.65) 06/08/24 05:39 Hgb 15.40 g/dL (11.27-16.99) 06/08/24 05:39 Hct 44.3 % (36-47) 06/08/24 05:39 MCV 94.3 fl (85-98) 06/08/24 05:39 MCH 32.8 pg (27-33) 06/08/24 05:39 MCHC 34.8 g/dL (30-55) 06/08/24 05:39 RDW 12.9 % (12.1-15.1) 06/08/24 05:39 Plt Count 254 10^3/cmm (157-399) 06/08/24 05:39 MPV 10.2 fL (7.4-10.4) 06/08/24 05:39 Neut % (Auto) 72.1 % 06/08/24 05:39 Lymph % (Auto) 15.4 % 06/08/24 05:39 [place] % (Auto) 11.0 % 06/08/24 05:39 Eos % (Auto) 1.0 % 06/08/24 05:39 Baso % (Auto) 0.1 % 06/08/24 05:39 Neut # (Auto) 5.89 10^3/uL (1.8-7.7) 06/08/24 05:39 Lymph # (Auto) 1.3 10^3/uL (0.8-4.8) 06/08/24 05:39 [place] # (Auto) 0.9 10^3/uL (0.2-0.9) 06/08/24 05:39 Eos # (Auto) 0.1 10^3/uL (0.0-0.8) 06/08/24 05:39 Baso # (Auto) 0.0 10^3/uL (0.0-0.1) 06/08/24 05:39 Nucleated RBC % (auto) 0 % 06/08/24 05:39 Nucleated RBCs # 0.0 /100WBC 06/08/24 05:39 Sodium 133 mmol/L (136-145) L 06/08/24 05:39 Potassium 3.5 mmol/L (3.5-5.1) 06/08/24 05:39 Chloride 98 mmol/L (98-107) 06/08/24 05:39 Carbon Dioxide 21 mmol/L (22-29) L 06/08/24 05:39 Anion Gap 17.5 (5-19) 06/08/24 05:39 BUN 22 mg/dL (8-23) 06/08/24 05:39 Creatinine 0.7 mg/dL (0.5-0.9) 06/08/24 05:39 GFR Calculation 83.0 mL/min (90-130) L 06/08/24 05:39 Glucose 303 mg/dL (65-115) H 06/08/24 05:39 Calculated Osmolality 291 mOsm/kg (285-295) 06/08/24 05:39 Calcium 8.5 mg/dL (8.5-10.5) 06/08/24 05:39 Magnesium 1.9 mg/dL (1.7-2.3) 06/08/24 05:39 Total Bilirubin 0.4 mg/dL (0.15-1.2) 06/08/24 05:39 AST 16 U/L (0-32) 06/08/24 05:39 ALT 22 U/L (0-33) 06/08/24 05:39 Alkaline Phosphatase 103 U/L (35-105) 06/08/24 05:39 Total Protein 6.5 g/dL (6.6-8.7) L 06/08/24 05:39 Albumin 3.9 g/dL (3.5-5.2) 06/08/24 05:39 Globulin 2.6 g/dL (1.3-4.6) 06/08/24 05:39 Lipase 11 U/L (13-60) L 06/08/24 05:39 Urine Color Yellow (Yellow) 06/08/24 05:05 Urine Appearance Clear (CLEAR) 06/08/24 05:05 Urine pH 5.5 (5-7) 06/08/24 05:05 Ur Specific [place] 1.047 (1.005-1.030) H 06/08/24 05:05 Urine Protein Trace (Negative) A 06/08/24 05:05 Urine Glucose (UA) 3+ (Normal) H 06/08/24 05:05 Urine Ketones 3+ (Negative) H 06/08/24 05:05 Urine Blood Negative (Negative) 06/08/24 05:05 Urine Nitrate Negative (Negative) 06/08/24 05:05 Urine Bilirubin Negative (Negative) 06/08/24 05:05 Urine Urobilinogen 0.2 mg/dL (Negative) 06/08/24 05:05 Ur Leukocyte Esterase Negative (Negative) 06/08/24 05:05 Urine RBC 0-4 /hpf (0-2) H 06/08/24 05:05 Urine WBC 0-4 /hpf (0-5) H 06/08/24 05:05 Ur Squamous Epith Cells 5-10 /hpf (0-5) H 06/08/24 05:05 Amorphous Sediment Not Reportable 06/08/24 05:05 Urine Bacteria Trace /hpf (NONE) 06/08/24 05:05 All radiology interpretation(s) finalized by discharge Discharge Plan Discharge Patient Disposition: Home Clinical Impression: Nausea vomiting and diarrhea Condition: Stable Prescriptions: New ondansetron 4 mg tablet,disintegrating 4 mg PO Q6H PRN (Reason: nausea and vomiting) Qty: 14 0RF No Action cyclobenzaprine 10 mg tablet 10 mg PO TID PRN (Reason: muscle spasm) Qty: 60 1RF zolpidem 10 mg tablet 10 mg PO .at bedtime Qty: 30 2RF lisinopril 40 mg tablet 40 mg PO DAILY Qty: 90 3RF azelastine-fluticasone 137-50 mcg/spray spray,non-aerosol 1 spray intranasal BID Qty: 23 2RF Rx Instructions: administer into each nostril celecoxib 100 mg capsule 100 mg PO BID Rx Instructions: TAKE 1 TABLET BY MOUTH TWICE A DAY glipizide 5 mg tablet 5 mg PO BID Rx Instructions: TAKE 1 TABLET BY MOUTH TWICE A DAY duloxetine 60 mg capsule,delayed release(DR/EC) 60 mg PO DAILY Rx Instructions: TAKE 1 CAPSULE BY MOUTH EVERY DAY metformin 1,000 mg tablet 1,000 mg PO BID Rx Instructions: TAKE 1 TABLET BY MOUTH TWICE A DAY verapamil 120 mg capsule,ext rel. pellets 24 hr 120 mg PO DAILY Rx Instructions: TAKE 1 CAPSULE BY MOUTH EVERY DAY loratadine 10 mg Tablet 10 mg PO DAILY Discharge Orders: Discharge ED (Routine); Ordered 06/08/24 Ordered By: Vicky Carrasco Referrals: Pantera Wang DO [Primary Care Provider] - 4-7 days Discharge Diet: Advance as tolerated Discharge Activity: Resume usual activity Patient Instructions: Acute Nausea and Vomiting (ED) Print Language: Italian Coding Level of Care Code ED Marketing Analytics Manager for Chg [employer] Documented by User: Vicky Carrasco MD 06/08/24 07:32 HPI - Nausea/Vomiting/Diarrhea General: Chief complaint: Nausea/Vomiting/Diarrhea Stated complaint: Vomiting Time Seen by Provider: 06/08/24 05:10 Related Data Home Medications ?Medication ?Instructions ?Recorded ?Confirmed loratadine 10 mg tablet 10 mg PO DAILY 10/24/22 06/08/24 celecoxib 100 mg capsule 100 mg PO BID 06/08/24 06/08/24 duloxetine 60 mg capsule,delayed 60 mg PO DAILY 06/08/24 06/08/24 release glipizide 5 mg tablet 5 mg PO BID 06/08/24 06/08/24 metformin 1,000 mg tablet 1,000 mg PO BID 06/08/24 06/08/24 verapamil 120 mg 24 hr 120 mg PO DAILY 06/08/24 06/08/24 capsule,extended release Previous Rx's ?Medication ?Instructions ?Recorded azelastine 137 mcg-fluticasone 50 1 spray intranasal BID #23 grams 01/11/24 mcg/spray nasal spray cyclobenzaprine 10 mg tablet 10 mg PO TID PRN muscle spasm #60 01/11/24 tabs lisinopril 40 mg tablet 40 mg PO DAILY #90 tabs 01/11/24 zolpidem 10 mg tablet 10 mg PO .at bedtime #30 tabs 01/11/24 ondansetron 4 mg disintegrating 4 mg PO Q6H PRN nausea and 06/08/24 tablet vomiting #14 tabs Allergies Allergy/AdvReac Type Severity Reaction Status Date / Time azithromycin Allergy Mild ADR-Vomitin Verified 06/08/24 04:50 g PFSH ED PFSH: Medical History Essential hypertension Non-insulin dependent type 2 diabetes mellitus Surgical History Hx of appendectomy Hx of hysterectomy Hx of cholecystectomy Hx of foot surgery Hx of ovarian cystectomy Family History Mother Diabetes Father Diabetes Denies family history of Clotting disorder Anesthesia complication Bleeding disorder Social History Smoking and tobacco/nicotine status: never used tobacco/nicotine Second hand smoke exposure: No Alcohol intake: never Substance/Drug Use: never Adopted: No Caregiver/support person: No Lives independently: Yes Household members: family Marital status: Number of children: 0 service: No Current gender identity: Female Course Vital Signs: Vital signs: Vital Signs Temperature 97.9 F 06/08/24 04:46 Pulse Rate 104 H 06/08/24 06:00 Respiratory Rate 16 06/08/24 06:00 Blood Pressure 142/93 06/08/24 04:46 Pulse Oximetry 94 06/08/24 06:00 Oxygen Delivery Me thod Room Air 06/08/24 05:50 MDM - Nausea/Vomiting/Diarrhea Medical Decision Making Patient presents with vomiting diarrhea is likely viral in origin her exam is benign blood works normal CT scan showed no acute findings we will prescribe her Zofran she is to follow-up with PCP return if worsening she understands agrees to plan. Lab Data 06/08/24 05:39 06/08/24 05:39 Radiology Impressions Abdomen/Pelvis CT 06/08/24 05:48 IMPRESSION: Diarrhea. Diverticulosis. Small pancreatic cyst. Suggest MRI of the abdomen with and without intravenous contrast and MRCP to further assess. Laboratory Results WBC 8.17 10^3/uL (3.29-11.43) 06/08/24 05:39 RBC 4.70 10^6/uL (3.85-5.65) 06/08/24 05:39 Hgb 15.40 g/dL (11.27-16.99) 06/08/24 05:39 Hct 44.3 % (36-47) 06/08/24 05:39 MCV 94.3 fl (85-98) 06/08/24 05:39 MCH 32.8 pg (27-33) 06/08/24 05:39 MCHC 34.8 g/dL (30-55) 06/08/24 05:39 RDW 12.9 % (12.1-15.1) 06/08/24 05:39 Plt Count 254 10^3/cmm (157-399) 06/08/24 05:39 MPV 10.2 fL (7.4-10.4) 06/08/24 05:39 Neut % (Auto) 72.1 % 06/08/24 05:39 Lymph % (Auto) 15.4 % 06/08/24 05:39 [place] % (Auto) 11.0 % 06/08/24 05:39 Eos % (Auto) 1.0 % 06/08/24 05:39 Baso % (Auto) 0.1 % 06/08/24 05:39 Neut # (Auto) 5.89 10^3/uL (1.8-7.7) 06/08/24 05:39 Lymph # (Auto) 1.3 10^3/uL (0.8-4.8) 06/08/24 05:39 [place] # (Auto) 0.9 10^3/uL (0.2-0.9) 06/08/24 05:39 Eos # (Auto) 0.1 10^3/uL (0.0-0.8) 06/08/24 05:39 Baso # (Auto) 0.0 10^3/uL (0.0-0.1) 06/08/24 05:39 Nucleated RBC % (auto) 0 % 06/08/24 05:39 Nucleated RBCs # 0.0 /100WBC 06/08/24 05:39 Sodium 133 mmol/L (136-145) L 06/08/24 05:39 Potassium 3.5 mmol/L (3.5-5.1) 06/08/24 05:39 Chloride 98 mmol/L (98-107) 06/08/24 05:39 Carbon Dioxide 21 mmol/L (22-29) L 06/08/24 05:39 Anion Gap 17.5 (5-19) 06/08/24 05:39 BUN 22 mg/dL (8-23) 06/08/24 05:39 Creatinine 0.7 mg/dL (0.5-0.9) 06/08/24 05:39 GFR Calculation 83.0 mL/min (90-130) L 06/08/24 05:39 Glucose 303 mg/dL (65-115) H 06/08/24 05:39 Calculated Osmolality 291 mOsm/kg (285-295) 06/08/24 05:39 Calcium 8.5 mg/dL (8.5-10.5) 06/08/24 05:39 Magnesium 1.9 mg/dL (1.7-2.3) 06/08/24 05:39 Total Bilirubin 0.4 mg/dL (0.15-1.2) 06/08/24 05:39 AST 16 U/L (0-32) 06/08/24 05:39 ALT 22 U/L (0-33) 06/08/24 05:39 Alkaline Phosphatase 103 U/L (35-105) 06/08/24 05:39 Total Protein 6.5 g/dL (6.6-8.7) L 06/08/24 05:39 Albumin 3.9 g/dL (3.5-5.2) 06/08/24 05:39 Globulin 2.6 g/dL (1.3-4.6) 06/08/24 05:39 Lipase 11 U/L (13-60) L 06/08/24 05:39 Urine Color Yellow (Yellow) 06/08/24 05:05 Urine Appearance Clear (CLEAR) 06/08/24 05:05 Urine pH 5.5 (5-7) 06/08/24 05:05 Ur Specific [place] 1.047 (1.005-1.030) H 06/08/24 05:05 Urine Protein Trace (Negative) A 06/08/24 05:05 Urine Glucose (UA) 3+ (Normal) H 06/08/24 05:05 Urine Ketones 3+ (Negative) H 06/08/24 05:05 Urine Blood Negative (Negative) 06/08/24 05:05 Urine Nitrate Negative (Negative) 06/08/24 05:05 Urine Bilirubin Negative (Negative) 06/08/24 05:05 Urine Urobilinogen 0.2 mg/dL (Negative) 06/08/24 05:05 Ur Leukocyte Esterase Negative (Negative) 06/08/24 05:05 Urine RBC 0-4 /hpf (0-2) H 06/08/24 05:05 Urine WBC 0-4 /hpf (0-5) H 06/08/24 05:05 Ur Squamous Epith Cells 5-10 /hpf (0-5) H 06/08/24 05:05 Amorphous Sediment Not Reportable 06/08/24 05:05 Urine Bacteria Trace /hpf (NONE) 06/08/24 05:05 Discharge Plan Discharge Patient Disposition: Home Clinical Impression: Nausea vomiting and diarrhea Condition: Stable Prescriptions: New ondansetron 4 mg tablet,disintegrating 4 mg PO Q6H PRN (Reason: nausea and vomiting) Qty: 14 0RF No Action cyclobenzaprine 10 mg tablet 10 mg PO TID PRN (Reason: muscle spasm) Qty: 60 1RF zolpidem 10 mg tablet 10 mg PO .at bedtime Qty: 30 2RF lisinopril 40 mg tablet 40 mg PO DAILY Qty: 90 3RF azelastine-fluticasone 137-50 mcg/spray spray,non-aerosol 1 spray intranasal BID Qty: 23 2RF Rx Instructions: administer into each nostril celecoxib 100 mg capsule 100 mg PO BID Rx Instructions: TAKE 1 TABLET BY MOUTH TWICE A DAY glipizide 5 mg tablet 5 mg PO BID Rx Instructions: TAKE 1 TABLET BY MOUTH TWICE A DAY duloxetine 60 mg capsule,delayed release(DR/EC) 60 mg PO DAILY Rx Instructions: TAKE 1 CAPSULE BY MOUTH EVERY DAY metformin 1,000 mg tablet 1,000 mg PO BID Rx Instructions: TAKE 1 TABLET BY MOUTH TWICE A DAY verapamil 120 mg capsule,ext rel. pellets 24 hr 120 mg PO DAILY Rx Instructions: TAKE 1 CAPSULE BY MOUTH EVERY DAY loratadine 10 mg Tablet 10 mg PO DAILY Discharge Orders: Discharge ED (Routine); Ordered 06/08/24 Ordered By: Vicky Carrasco Referrals: Pantera Wang DO [Primary Care Provider] - 4-7 days Discharge Diet: Advance as tolerated Discharge Activity: Resume usual activity Patient Instructions: Acute Nausea and Vomiting (ED) Print Language: Italian Coding Level of Care Code ED Marketing Analytics Manager for Dre Mcguire
[2024-06-08 05:19] LABS: Bilirubin Urine Negative (Negative); Blood Urine Negative (Negative); Glucose Urine UA 3+ (Normal); Ketones Urine 3+ (Negative); Leukocyte Esterase Urine Negative (Negative); Nitrate Urine Negative (Negative); Protein Urine Trace (Negative); Urine Appearance Clear (CLEAR); Urine Color Yellow (Yellow); Urobilinogen Urine 0.2 mg/dL (Negative); pH Urine 5.5 (5-7)
[2024-06-08 05:25] LABS: Specific Gravity, Urine 1.047 (1.005-1.030)
[2024-06-08 05:26] LABS: Add Urine Microscopic? YES; Bacteria Urine TRACE /hpf; RBC Urine 0-4 /hpf (0-2); UA Manual Slide Review YES; WBC Urine 0-4 /hpf (0-5)
[2024-06-08] MEDS: sodium chloride 0.9% 1,000 ML 999 ML IV (05:28)
[2024-06-08] MEDS: ondansetron 2 mg/ML SDV 2 mL 8 MG IVP (05:28)
[2024-06-08] MEDS: ketorolac 30 mg/mL INJ IVP (05:28)
[2024-06-08 05:47] LABS: Basophils % 0.1 %; Eosinophils # 0.1 10^3/uL (0.0-0.8); Hematocrit 44.3 % (36-47); Lymphocytes # 1.3 10^3/uL (0.8-4.8); Lymphocytes % 15.4 %; Mean Corpuscular HGB Conc 34.8 g/dL (30-55); Mean Corpuscular Hemoglobin 32.8 pg (27-33); Mean Corpuscular Volume 94.3 fl (85-98); Mean Platelet Volume 10.2 fL (7.4-10.4); Monocytes # 0.9 10^3/uL (0.2-0.9); Neutrophils # 5.89 10^3/uL (1.8-7.7); Neutrophils % 72.1 %; Nucleated Red Blood Cells % 0 %; Platelet Count 254 10^3/cmm (157-399); Red Cell Distribution Width 12.9 % (12.1-15.1); White Blood Count 8.17 10^3/uL (3.29-11.43)
--- NOTE | 2024-06-08 05:48 | CTR_ITS ---
PROCEDURE INFORMATION: Exam: CT Abdomen And Pelvis With Contrast Exam date and time: 06/08/2024 6:14 AM Age: 69 years old Clinical indication: Nausea and vomiting; Prior surgery; Surgery date: 6+ months; Surgery type: Appy, gb, hyst; Additional info: Abd pain TECHNIQUE: Imaging protocol: Computed tomography of the abdomen and pelvis with contrast. Radiation optimization: All CT scans at this facility use at least one of these dose optimization techniques: automated exposure control; mA and/or kV adjustment per patient size (includes targeted exams where dose is matched to clinical indication); or iterative reconstruction. Contrast material: OMNI 350; Contrast volume: 100 ml; Contrast route: INTRAVENOUS (IV); COMPARISON: CR XR chest 1V portable [id number] 09/23/2022 6:26 PM RADIATION DOSE METRICS: Total DLP (mGy-cm): 775.31 FINDINGS: Lungs: Seagraves dependent change and streaky atelectasis is noted at the lung bases. Liver: Normal. No mass. Gallbladder and biliary ducts: Surgical clips are noted in the gallbladder fossa compatible with prior cholecystectomy. Pancreas: A 7 x 6 mm cystic lesion noted in the pancreatic tail. MRI of the abdomen with and without intravenous contrast and MRCP is suggested to further assess. Spleen: Normal. No splenomegaly. Adrenal glands: Normal. No mass. Kidneys and ureters: The kidneys enhance symmetrically and there is no hydronephrosis. Stomach and bowel: There is no evidence for small bowel obstruction. Liquid stool and gas are scattered throughout the colon. Descending and sigmoid diverticulosis is noted. Appendix: No evidence of appendicitis. Intraperitoneal space: Unremarkable. No free air. No significant fluid collection. Vasculature: The abdominal aorta is tortuous in course with normal overall caliber scattered calcific atheromatous plaque. Lymph nodes: Unremarkable. No enlarged lymph nodes. Urinary bladder: The urinary bladder is relatively contracted. Reproductive: The patient appears to be post hysterectomy. Bones/joints: Degenerative changes are noted in the bones. Soft tissues: Unremarkable. CT/CT abdomen pelvis w con* [id number] IMPRESSION: Diarrhea. Diverticulosis. Small pancreatic cyst. Suggest MRI of the abdomen with and without intravenous contrast and MRCP to further assess.
[2024-06-08 05:50] VITALS: PULSE 99; O2SAT 92
[2024-06-08 06:00] VITALS: PULSE 104; RESP 16; O2SAT 94
[2024-06-08 06:05] LABS: Alanine Aminotransferase 22 U/L (0-33); Albumin Level 3.9 g/dL (3.5-5.2); Alkaline Phosphatase 103 U/L (35-105); Anion Gap 17.5 (5-19); Aspartate Amino Transferase 16 U/L (0-32); Blood Urea Nitrogen 22 mg/dL (8-23); Calcium 8.5 mg/dL (8.5-10.5); Carbon Dioxide 21 mmol/L (22-29); Chloride 98 mmol/L (98-107); Creatinine Clr Calc Pharmacy 74.8436; Globulin 2.6 g/dL (1.3-4.6); Glucose 303 mg/dL (65-115); Lipase 11 U/L (13-60); Magnesium 1.9 mg/dL (1.7-2.3); Osmolality Calculated 291 mOsm/kg (285-295); Potassium 3.5 mmol/L (3.5-5.1); Sodium 133 mmol/L (136-145); Total Bilirubin 0.4 mg/dL (0.15-1.2); Total Protein 6.5 g/dL (6.6-8.7)
[2024-06-08] MEDS: iohexol 350 mg/mL 500 mL Btl (per mL) IV (06:24)
[2024-06-08] MEDS: diphenoxylate/atropine Tablet 2 TAB PO (07:47)
[2024-06-08 07:48] VITALS: BP 147/92; PULSE 105; O2SAT 96
== END 2024-06-08 07:49 | disposition home or self-care (01) ==
PROVIDERS: Emergency Medicine; Emergency Provider Emergency Medicine; PCP Family Medicine
DX: R11.2 Nausea with vomiting, unspecified (principal); R19.7 Diarrhea, unspecified; Z79.84 Long term (current) use of oral hypoglycemic drugs; E11.9 Type 2 diabetes mellitus without complications; I10 Essential (primary) hypertension
CPT/HCPCS: 36415; 74177; 80053; 81001; 83690; 83735; 85025; 96361; 96374; 96375; 99285; J1885; J2405; J7030

== ENCOUNTER 2024-08-09 12:01 | Emergency (ER) | payer MEDICARE, OTHER, SELFPAY ==
[2024-08-09 12:06] VITALS: BP 160/98; PULSE 106; RESP 20; TEMP 36.6; O2SAT 96
--- NOTE | 2024-08-09 13:39 | XR_ITS ---
WS: [id number] XR thoracic spine 3V* [id number] REASON FOR EXAM: FALL FINDINGS: Mild levoscoliosis. No significant kyphosis. Mild biconcave compression deformities T5-T7, which appear chronic, but no previous examinations to confirm. There is moderate disc space narrowing and significant osteophytosis in the mid and lower thoracic spine. XR/XR thoracic spine 3V* [id number] IMPRESSION: Mild levoscoliosis. Thoracic compression deformities as above.
--- NOTE | 2024-08-09 13:39 | CT_ITS ---
WS: [id number] CT CERVICAL TRAUMA TECHNIQUE: Noncontrast CT of the cervical spine with coronal and sagittal reformatted images. CLINICAL INFORMATION: pain, fall, bilat UE paresthesias COMPARISON: None. DLP: 208.[address] scans at [facility] use at least one of these dose optimization techniques: automated exposure control; mA and/or kV adjustment per patient size (includes targeted exams where dose is matched to clinical indication); or iterative reconstruction. FINDINGS: Straightening of the normal cervical lordosis. Moderate spondylitic changes. Ankylosis C5-C7. Normal craniocervical junction. Normal C1-C2 articulation. Dens is normal in appearance. Normal occipital condyles. Normal C1 ring. No evidence of acute fracture or dislocation. Mild to moderate bony foraminal narrowing LEFT C3-4, LEFT C5-6, LEFT C6-7 and LEFT C7-T1, worse at LEFT C7-T1. Disc osteophyte complexes worse at C5-C6 C6-C7 and C7-T1 with mild central canal stenosis. Normal prevertebral soft tissues. Mastoids air cells are well aerated. Multinodular thyroid. CT/CT cervical spin wo con* [id number] IMPRESSION: No evidence of acute fracture or dislocation.
--- NOTE | 2024-08-09 13:40 | W.ED.NECK ---
HPI - Neck Pain/Injury General: Chief Complaint: Extremity Injury, Upper Stated Complaint: pain in both arms / shoulders Time Seen by Provider: 08/09/24 13:15 Source: patient Mode of arrival: ambulatory Limitations: no limitations History of Present Illness: Patient is a 69-year-old female presenting to the ED with bilateral upper extremity pain/paresthesias complicated by chronic fibromyalgia. She states that she has pain in her bilateral shoulders, clavicle, and neck for several weeks. Upon further investigation, patient reports falling 4 weeks ago-does not remember specifically injuring her neck/back. She did not pursue any medical care at that time, and she is unable to determine if this incident was the provoking factor for her increased pain. Patient states she does not take anything for her fibromyalgia stating they don't work. Denies fevers. No headache. MD complaint: neck pain and upper back pain Onset (ago): week(s) Radiation: upper back Severity: moderate Duration: constant Relieving factors: none Exacerbating factors: movement of extremity and movement of neck Associated symptoms: Denies difficulty walking, dizziness or headache(s) Treatments prior to arrival: acetaminophen and ibuprofen Related Data Home Medications ?Medication ?Instructions ?Recorded ?Confirmed loratadine 10 mg tablet 10 mg PO DAILY 10/24/22 08/06/24 duloxetine 60 mg capsule,delayed 60 mg PO DAILY 06/08/24 08/06/24 release glipizide 5 mg tablet 5 mg PO BID 06/08/24 08/06/24 metformin 1,000 mg tablet 1,000 mg PO BID 06/08/24 08/06/24 verapamil 120 mg 24 hr 120 mg PO DAILY 06/08/24 08/06/24 capsule,extended release Previous Rx's ?Medication ?Instructions ?Recorded azelastine 137 mcg-fluticasone 50 1 spray intranasal BID #23 grams 01/11/24 mcg/spray nasal spray cyclobenzaprine 10 mg tablet 10 mg PO TID PRN muscle spasm #60 01/11/24 tabs lisinopril 40 mg tablet 40 mg PO DAILY #90 tabs 01/11/24 zolpidem 10 mg tablet 10 mg PO .at bedtime #30 tabs 01/11/24 ondansetron 4 mg disintegrating 4 mg PO Q6H PRN nausea and 06/08/24 tablet vomiting #14 tabs celecoxib 100 mg capsule See Rx Instructions .Route 06/27/24 .COMPLEX #60 caps cephalexin 500 mg capsule 500 mg PO TID 7 days #21 caps 08/06/24 Allergies Allergy/AdvReac Type Severity Reaction Status Date / Time azithromycin Allergy Mild ADR-Vomitin Verified 08/06/24 17:56 g Review of Systems Const: Denies: fever(s), chills, body aches, fatigue or malaise Card: Denies: chest pain Resp: Denies: dyspnea Musc: Reports: neck pain, back pain (Thoracic) and extremity pain; Denies: extremity swelling, joint pain, joint swelling, joint redness, joint warmth, joint stiffness or limited range of motion (Bilateral shoulders) Neuro: Reports: sensory changes (reports intermittent paresthesias to bilateral upper extremities); Denies: headache(s), numbness in extremities, weakness in extremities, difficulty walking, frequent falls, dizziness or vertigo PFSH ED PFSH: Medical History Essential hypertension Non-insulin dependent type 2 diabetes mellitus Surgical History Hx of appendectomy Hx of hysterectomy Hx of cholecystectomy Hx of foot surgery Hx of ovarian cystectomy Family History Mother Diabetes Father Diabetes Denies family history of Clotting disorder Anesthesia complication Bleeding disorder Social History Smoking and tobacco/nicotine status: never used tobacco/nicotine Second hand smoke exposure: No Alcohol intake: never Substance/Drug Use: never Adopted: No Caregiver/support person: No Lives independently: Yes Household members: family Marital status: Number of children: 0 service: No Current gender identity: Female Female Reproductive History: Spontaneous abortions: No Physical Exam Const: COMMON NORMALS: no acute distress, average body habitus, patient oriented x3, no limitations, healthy appearing, alert and well nourished GENERAL APPEARANCE: cooperative HENMT: COMMON NORMALS: normocephalic and atraumatic HEAD & SCALP: normal to inspection, normocephalic and atraumatic Eye: COMMON NORMALS: Equal, round and reactive pupils present, EOMs intact bilaterally and conjunctivae normal CONJUNCTIVA: Yes conjunctivae normal PUPIL: Yes Equal, round and reactive pupils present Neck/C-Spine: COMMON NORMALS: full ROM, no lymphadenopathy, supple, no meningeal signs and no JVD CERVICAL SPINE: Yes cervical ROM normal, Yes pain with cervical ROM, Yes Cervical spine tenderness, No step off deformity and Yes Paracervical muscle tenderness Resp: COMMON NORMALS: normal respiratory effort and clear to auscultation bilaterally AUSCULTATION: clear to auscultation bilaterally Cardio: COMMON NORMALS: no JVD, regular rate and regular rhythm RATE: regular rate RHYTHM: regular rhythm Back/Pelvis: THORACIC SPINE/UPPER BACK: Yes normal to inspection, Yes thoracic ROM normal, Yes thoracic spinal tenderness (upper T spine) and Yes paraspinal muscle tenderness LUMBAR SPINE/LOWER BACK: No lumbar spinal tenderness and No paraspinal muscle tenderness PELVIS: No buttocks normal SACRUM: no tenderness COCCYX: no tenderness Extremity: COMMON NORMALS: normal to inspection, capillary refill normal, no joint enlargement and no clubbing, cyanosis or edema NARRATIVE EXTREMITY EXAM: pain to neck/upper back with ROM of bilateral shoulders; states some of this is consistent with her fibro pain; extremities are normal in exam with distal pulses, cap refill, and sensation normal; no edema GENERAL: Yes normal exam except as noted RIGHT UPPER EXTREMITY: Yes shoulder joint LEFT UPPER EXTREMITY: Yes shoulder joint Neuro: COMMON NORMALS: patient oriented x3, moves all extremities, no focal motor deficits, no sensory deficits noted and gait normal SENSORIUM/ORIENTATION: Yes alert MENINGEAL SIGNS: Yes no meningeal signs MOTOR EXAM: 5/5 motor strength present throughout Course Vital Signs: Vital signs: Vital Signs Temperature 97.9 F 08/09/24 12:06 Pulse Rate 106 H 08/09/24 12:06 Respiratory Rate 20 H 08/09/24 12:06 Blood Pressure 160/98 08/09/24 12:06 Pulse Oximetry 96 08/09/24 12:06 Oxygen Delivery Me thod Room Air 08/09/24 12:06 MDM - Neck Pain/Injury Medical Decision Making CT of her cervical spine and XR of her thoracic spine obtained. She does have chronic/degenerative findings. She was noted to have thoracic compression fractures involving T5-T7 with unknown chronicity. She is requesting referral to Dr. Sheldon so this will be placed. She can otherwise follow-up with primary care. Medical Records I reviewed the patient's medical records. Lab Data Radiology Impressions Cervical Spine CT 08/09/24 13:39 IMPRESSION: No evidence of acute fracture or dislocation. Thoracic Spine X-Ray 08/09/24 13:39 IMPRESSION: Mild levoscoliosis. Thoracic compression deformities as above. All radiology interpretation(s) finalized by discharge Discharge Plan Discharge Patient Disposition: Home Clinical Impression: Neck pain Compression fracture of thoracic vertebra Qualifiers: Encounter type: initial encounter Thoracic vertebra fracture level: unspecified thoracic vertebra Qualified Code(s): S22.000A - Wedge compression fracture of unspecified thoracic vertebra, initial encounter for closed fracture Condition: Stable Prescriptions: No Action cyclobenzaprine 10 mg tablet 10 mg PO TID PRN (Reason: muscle spasm) Qty: 60 1RF zolpidem 10 mg tablet 10 mg PO .at bedtime Qty: 30 2RF lisinopril 40 mg tablet 40 mg PO DAILY Qty: 90 3RF azelastine-fluticasone 137-50 mcg/spray spray,non-aerosol 1 spray intranasal BID Qty: 23 2RF Rx Instructions: administer into each nostril cephalexin 500 mg capsule 500 mg PO TID 7 Days Qty: 21 0RF celecoxib 100 mg capsule See Rx Instructions .ROUTE .COMPLEX Qty: 60 2RF Dose Instruction: TAKE 1 CAPSULE BY MOUTH TWICE A DAY Rx Instructions: TAKE 1 CAPSULE BY MOUTH TWICE A DAY glipizide 5 mg tablet 5 mg PO BID Rx Instructions: TAKE 1 TABLET BY MOUTH TWICE A DAY duloxetine 60 mg capsule,delayed release(DR/EC) 60 mg PO DAILY Rx Instructions: TAKE 1 CAPSULE BY MOUTH EVERY DAY ondansetron 4 mg tablet,disintegrating 4 mg PO Q6H PRN (Reason: nausea and vomiting) Qty: 14 0RF metformin 1,000 mg tablet 1,000 mg PO BID Rx Instructions: TAKE 1 TABLET BY MOUTH TWICE A DAY verapamil 120 mg capsule,ext rel. pellets 24 hr 120 mg PO DAILY Rx Instructions: TAKE 1 CAPSULE BY MOUTH EVERY DAY loratadine 10 mg Tablet 10 mg PO DAILY Discharge Orders: Discharge ED (Routine); Ordered 08/09/24 Ordered By: Delia Ceballos Activity Restrictions/Additional Instructions: As we discussed, we will place case management referral for you to follow-up with Dr. Sheldon. Print Language: Ivorian Coding Level of Care Code ED Tube Turner for Dre Mcguire
[2024-08-09 15:16] VITALS: BP 159/117; PULSE 89; O2SAT 98
--- NOTE | 2024-08-10 08:46 | DCPLANNER ---
Message sent to Ortho/ Monalisa for referral- CT of her cervical spine and XR of her thoracic spine obtained. She does have chronic/degenerative findings. She was noted to have thoracic compression fractures involving T5-T7 with unknown chronicity. She is requesting referral to Dr. Sheldon so this will be placed. She can otherwise follow-up with primary care.
== END 2024-08-09 15:18 | disposition home or self-care (01) ==
PROVIDERS: Emergency Provider Physician Assistant
DX: S22.000A Wedge compression fracture of unspecified thoracic vertebra, initial encounter for closed fracture (principal); M54.2 Cervicalgia; Z79.84 Long term (current) use of oral hypoglycemic drugs; E11.9 Type 2 diabetes mellitus without complications; I10 Essential (primary) hypertension; X58.XXXA Exposure to other specified factors, initial encounter
CPT/HCPCS: 72072; 72125; 99284

== ENCOUNTER 2024-08-11 12:55 | Emergency (ER) | payer MEDICARE, OTHER, SELFPAY ==
[2024-08-11 13:05] VITALS: BP 145/92; PULSE 98; RESP 17; TEMP 36.4; O2SAT 96; BMI 28.5
[2024-08-11] MEDS: dexamethasone 10 mg/mL INJ 8 MG IM (14:50)
[2024-08-11] MEDS: ketorolac 60 mg/2 mL INJ IM (14:50)
--- NOTE | 2024-08-11 14:54 | W.ED.EXTPRO ---
HPI - Extremity Problem General: Chief complaint: Extremity Injury, Upper Stated complaint: right arm pain Time Seen by Provider: 08/11/24 14:33 Source: patient Mode of arrival: ambulatory Limitations: no limitations History of Present Illness: Patient is a 69-year-old female here for repeat medical evaluation for continued neck and back pain radiating into her bilateral (right>left) shoulders and arms. Her main complaint today seems to be pain around the right shoulder. Patient does have chronic fibromyalgia. She was seen here yesterday and had CT scan of her cervical spine performed as well as XRs of her thoracic spine. She was found to have a few upper thoracic compression fractures. Plan was going to be for her to follow-up with Dr. Sheldon. CT scan of her cervical spine showing degenerative changes. Patient states she was not sent home with anything to help with her discomfort. She does take Celebrex daily at home. She is not noticing any weakness to her arms. No severe headache. No fever. No neck stiffness. MD Complaint: joint pain Onset (ago): day(s) Pain Consistency: constant Location: right and upper extremity Radiation: none Relieving factors: nothing Exacerbating factors: range of motion Associated symptoms: Reports no associated symptoms; Deny chest pain, fever(s) or rash Related Data Home Medications ?Medication ?Instructions ?Recorded ?Confirmed loratadine 10 mg tablet 10 mg PO DAILY 10/24/22 08/06/24 duloxetine 60 mg capsule,delayed 60 mg PO DAILY 06/08/24 08/06/24 release glipizide 5 mg tablet 5 mg PO BID 06/08/24 08/06/24 metformin 1,000 mg tablet 1,000 mg PO BID 06/08/24 08/06/24 verapamil 120 mg 24 hr 120 mg PO DAILY 06/08/24 08/06/24 capsule,extended release Previous Rx's ?Medication ?Instructions ?Recorded azelastine 137 mcg-fluticasone 50 1 spray intranasal BID #23 grams 01/11/24 mcg/spray nasal spray lisinopril 40 mg tablet 40 mg PO DAILY #90 tabs 01/11/24 zolpidem 10 mg tablet 10 mg PO .at bedtime #30 tabs 01/11/24 ondansetron 4 mg disintegrating 4 mg PO Q6H PRN nausea and 06/08/24 tablet vomiting #14 tabs celecoxib 100 mg capsule See Rx Instructions .Route 06/27/24 .COMPLEX #60 caps cephalexin 500 mg capsule 500 mg PO TID 7 days #21 caps 08/06/24 prednisone 10 mg tablet 10 mg PO DAILY 7 days #27 tabs 08/11/24 tizanidine 4 mg capsule (Zanaflex) 4 mg PO Q8H PRN muscle spasticity 08/11/24 #20 caps Allergies Allergy/AdvReac Type Severity Reaction Status Date / Time azithromycin Allergy Mild ADR-Vomitin Verified 08/06/24 17:56 g Review of Systems Const: Denies: fever(s), chills, body aches, fatigue or malaise Eyes: Denies: change in vision, blurry vision, floaters or seeing flashes ENMT: Denies: throat pain or odynophagia Card: Denies: chest pain Resp: Denies: dyspnea GI: Denies: nausea or vomiting Musc: Reports: neck pain, back pain and joint pain (R shoulder); Denies: extremity pain, extremity swelling, joint swelling, joint redness, joint warmth or joint stiffness Skin/Breast: Denies: rash Neuro: Denies: headache(s), numbness in extremities, weakness in extremities or sensory changes PFSH ED PFSH: Medical History Essential hypertension Non-insulin dependent type 2 diabetes mellitus Surgical History Hx of appendectomy Hx of hysterectomy Hx of cholecystectomy Hx of foot surgery Hx of ovarian cystectomy Family History Mother Diabetes Father Diabetes Denies family history of Clotting disorder Anesthesia complication Bleeding disorder Social History Smoking and tobacco/nicotine status: never used tobacco/nicotine Second hand smoke exposure: No Alcohol intake: never Substance/Drug Use: never Adopted: No Caregiver/support person: No Lives independently: Yes Household members: family Marital status: Number of children: 0 service: No Current gender identity: Female Female Reproductive History: Spontaneous abortions: No Physical Exam Const: COMMON NORMALS: no acute distress, patient oriented x3, no limitations, alert and well nourished GENERAL APPEARANCE: cooperative ORIENTATION/CONSCIOUSNESS: Yes awake, Yes oriented to person, Yes oriented to place and Yes oriented to time HENMT: COMMON NORMALS: normocephalic and atraumatic HEAD & SCALP: normal to inspection, normocephalic and atraumatic Eye: COMMON NORMALS: Equal, round and reactive pupils present and EOMs intact bilaterally GENERAL EYE: appearance normal, both eyes and all related structures and normal light reflex PUPIL: Yes Equal, round and reactive pupils present DIRECT OPHTHALMOSCOPY: Yes normal light reflex Neck/C-Spine: COMMON NORMALS: full ROM, no lymphadenopathy, supple, no meningeal signs, no JVD, Thyroid normal and No carotid bruits GENERAL: No anterior neck swelling and No submandibular swelling THYROID: Thyroid normal CERVICAL SPINE: Yes cervical ROM normal, Yes pain with cervical ROM, No step off deformity and Yes Paracervical muscle tenderness Chest: COMMONS NORMALS: normal inspection of the chest and normal palpation of entire chest wall Resp: COMMON NORMALS: normal respiratory effort and clear to auscultation bilaterally AUSCULTATION: clear to auscultation bilaterally Cardio: COMMON NORMALS: no JVD, regular rate and regular rhythm RATE: regular rate RHYTHM: regular rhythm : COMMON NORMALS: Yes no CVA tenderness BLADDER/KIDNEY EXAM: Yes no CVA tenderness Back/Pelvis: COMMON NORMALS: no CVA tenderness, thoracic and lumbar spine normal to inspection and thoraco-lumbar ROM normal THORACIC SPINE/UPPER BACK: Yes normal to inspection, Yes thoracic ROM normal, Yes thoracic spinal tenderness and Yes paraspinal muscle tenderness LUMBAR SPINE/LOWER BACK: No lumbar spinal tenderness, No paraspinal muscle tenderness and Yes straight leg raise negative bilaterally Extremity: COMMON NORMALS: normal to inspection, capillary refill normal and no clubbing, cyanosis or edema NARRATIVE EXTREMITY EXAM: pain throughout bilateral shoulders (right>left); full passive ROM although uncomfortable; no weakness; extremities are NV intact with intact sensation; no edema/color/temp changes noted GENERAL: Yes normal exam except as noted Neuro: ORAL COMA SCALE: document GCS findings [place] coma scale eye opening: Spontaneous Oral coma scale verbal response: Orientated [place] coma scale motor response: Obey commands [place] coma scale total score: 15 COMMON NORMALS: patient oriented x3, CN's II-XII intact bilaterally, moves all extremities, no focal motor deficits, no sensory deficits noted and gait normal SENSORIUM/ORIENTATION: Yes alert, Yes oriented to person, Yes oriented to place and Yes oriented to time MENINGEAL SIGNS: Yes no meningeal signs Skin: COMMON NORMALS: no rashes or lesions noted GENERAL SKIN EXAM: no rashes or lesions noted Course Vital Signs: Vital signs: Vital Signs Temperature 97.5 F L 08/11/24 13:05 Pulse Rate 94 08/11/24 15:32 Respiratory Rate 18 08/11/24 14:57 Blood Pressure 162/111 08/11/24 15:32 Pulse Oximetry 94 08/11/24 15:32 Oxygen Delivery Me thod Room Air 08/11/24 13:05 MDM - Extremity (Nontraumatic) Medical Decision Making Patient reporting her pain decreased from 8/10 to 4/10. Recommend she continue taking her Celebrex. She reportedly had Flexeril at home but does not like the way it makes her feel so wants to try something different. We will try Zanaflex. Will place her on a steroid taper. Recommend follow-up with primary care. Case management referral pending to see Dr. Sheldon regarding the thoracic compression fractures. Medical Records I reviewed the patient's medical records. No radiology studies performed this visit Discharge Plan Discharge Patient Disposition: Home Clinical Impression: Fibromyalgia, Neck pain Compression fracture of thoracic vertebra Qualifiers: Encounter type: initial encounter Thoracic vertebra fracture level: unspecified thoracic vertebra Qualified Code(s): S22.000A - Wedge compression fracture of unspecified thoracic vertebra, initial encounter for closed fracture Pain in right shoulder Qualifiers: Chronicity: acute Qualified Code(s): M25.511 - Pain in right shoulder Condition: Stable Prescriptions: New tizanidine [Zanaflex] 4 mg capsule 4 mg PO Q8H PRN (Reason: muscle spasticity) Qty: 20 0RF prednisone 10 mg tablet 10 mg PO DAILY 7 Days Qty: 27 0RF Rx Instructions: 6 tabs on days 1-2, 5 tabs on days 3, 4 tabs on day 4, 3 tabs on day 5, 2 tabs on day 6, 1 tab on day 7 Continued celecoxib 100 mg capsule See Rx Instructions .ROUTE .COMPLEX Qty: 60 2RF Dose Instruction: TAKE 1 CAPSULE BY MOUTH TWICE A DAY Rx Instructions: TAKE 1 CAPSULE BY MOUTH TWICE A DAY Discontinued cyclobenzaprine 10 mg tablet 10 mg PO TID PRN (Reason: muscle spasm) Qty: 60 1RF No Action zolpidem 10 mg tablet 10 mg PO .at bedtime Qty: 30 2RF lisinopril 40 mg tablet 40 mg PO DAILY Qty: 90 3RF azelastine-fluticasone 137-50 mcg/spray spray,non-aerosol 1 spray intranasal BID Qty: 23 2RF Rx Instructions: administer into each nostril cephalexin 500 mg capsule 500 mg PO TID 7 Days Qty: 21 0RF glipizide 5 mg tablet 5 mg PO BID Rx Instructions: TAKE 1 TABLET BY MOUTH TWICE A DAY duloxetine 60 mg capsule,delayed release(DR/EC) 60 mg PO DAILY Rx Instructions: TAKE 1 CAPSULE BY MOUTH EVERY DAY ondansetron 4 mg tablet,disintegrating 4 mg PO Q6H PRN (Reason: nausea and vomiting) Qty: 14 0RF metformin 1,000 mg tablet 1,000 mg PO BID Rx Instructions: TAKE 1 TABLET BY MOUTH TWICE A DAY verapamil 120 mg capsule,ext rel. pellets 24 hr 120 mg PO DAILY Rx Instructions: TAKE 1 CAPSULE BY MOUTH EVERY DAY loratadine 10 mg Tablet 10 mg PO DAILY Discharge Orders: Discharge ED (Routine); Ordered 08/11/24 Ordered By: Delia Ceballos Activity Restrictions/Additional Instructions: You may continue your Celebrex at home as an anti-inflammatory. Will place you on a different muscle relaxer and steroid taper. Continue plan to follow-up with primary care as well as Dr. Sheldon with case management call to help set you up with this follow-up appointment. Print Language: Lithuanian Coding Level of Care Code ED Surgical Coordinator for Dre Mcguire
[2024-08-11 14:57] VITALS: BP 149/109; PULSE 95; RESP 18; O2SAT 95
[2024-08-11 15:32] VITALS: BP 162/111; PULSE 94; O2SAT 94
== END 2024-08-11 15:34 | disposition home or self-care (01) ==
PROVIDERS: Emergency Provider Physician Assistant
DX: M79.7 Fibromyalgia (principal); M54.2 Cervicalgia; S22.000A Wedge compression fracture of unspecified thoracic vertebra, initial encounter for closed fracture; M25.511 Pain in right shoulder; Z79.84 Long term (current) use of oral hypoglycemic drugs; E11.9 Type 2 diabetes mellitus without complications; I10 Essential (primary) hypertension; X58.XXXA Exposure to other specified factors, initial encounter
CPT/HCPCS: 96372; 99284; J1100; J1885

== ENCOUNTER → 2024-08-16 15:15 | Outpatient (BNVA) | payer MEDICARE, OTHER, SELFPAY | PROVIDERS: PCP Family Medicine; Referring Provider Physician Assistant; Visit Provider Orthopaedic Surgery | DX: M54.2 Cervicalgia (principal); S22.050A Wedge compression fracture of T5-T6 vertebra, initial encounter for closed fracture; S22.060A Wedge compression fracture of T7-T8 vertebra, initial encounter for closed fracture; X58.XXXA Exposure to other specified factors, initial encounter | CPT/HCPCS: 72050; 72072; 99203 ==

== ENCOUNTER 2024-09-01 11:02 | Outpatient (CLI) | payer MEDICARE, OTHER, SELFPAY ==
--- NOTE | 2024-09-01 11:00 | MR_ITS ---
WS: [email or web address] MRI CERVICAL SPINE NONCONTRAST TECHNIQUE: Sagittal T1, T2 and STIR imaging. Axial T2, gradient, and fiesta imaging. CLINICAL INFORMATION: neck pain COMPARISON: CT 08/09/2024 FINDINGS: Straightening of the normal cervical lordosis. Mild spondylitic changes. Anterior hypertrophic changes C5-C7. Disc bulging worse at C5-C6 and C7-T1 C2-C3: Normal. C3-C4: Mild facet arthropathy. Mild LEFT bony foraminal narrowing. C4-C5: Mild facet arthropathy. Spinal canal and foramen are patent. C5-C6: RIGHT paracentral disc osteophyte protrusion with slight indentation on the cervical cord. Moderate LEFT and mild RIGHT bony foraminal narrowing. Mild central canal stenosis. C6-C7: Disc osteophyte complex with mild central canal stenosis. Moderate to severe LEFT bony foraminal narrowing. Moderate RIGHT bony foraminal narrowing. Uncovertebral joint hypertrophy. C7-T1: LEFT paracentral disc osteophyte protrusion with indentation on the cervical cord. Mild central canal stenosis. Moderate bilateral bony foraminal narrowing with facet arthropathy and uncovertebral joint hypertrophy. Visualized brain stem structures: Small vessel changes in the reta. Prevertebral soft tissues: Normal. MR/MR cervical spin wo con* [id number] IMPRESSION: 1. Mild central canal stenosis C5-C6, C6-7, and C7-T1 with small disc osteophy te protrusions with slight indentation on the cervical cord described above. 2. Moderate bony foraminal narrowing worse at LEFT C5-C6, LEFT greater than RI GHT C6-7, and bilateral C7-T1. 3. Cord signal is normal.
--- NOTE | 2024-09-01 11:45 | MR_ITS ---
WS: [email or web address] MRI THORACIC SPINE WITHOUT CONTRAST TECHNIQUE: Sagittal T1, T2 and STIR imaging. Axial T2 imaging. Noncontrast imaging obtained. CLINICAL INFORMATION: back pain COMPARISON: None. FINDINGS: Mild thoracic curve. Mild thoracic kyphosis. Anterior hypertrophic changes thoracic spine. Moderate facet arthropathy lower thoracic spine. Cord signal appears normal. No high-grade central canal stenosis. Normal caliber thoracic aorta. Adrenal glands are normal. MR/MR thoracic spin wo con* [id number] IMPRESSION: No acute thoracic spine findings
== END 2024-09-01 11:03 | disposition home or self-care (01) ==
PROVIDERS: PCP Family Medicine; Visit Provider Orthopaedic Surgery
DX: M48.02 Spinal stenosis, cervical region (principal); M48.03 Spinal stenosis, cervicothoracic region; M25.78 Osteophyte, vertebrae; R93.7 Abnormal findings on diagnostic imaging of other parts of musculoskeletal system; M47.892 Other spondylosis, cervical region; M89.38 Hypertrophy of bone, other site; M50.322 Other cervical disc degeneration at C5-C6 level; M50.33 Other cervical disc degeneration, cervicothoracic region; M50.222 Other cervical disc displacement at C5-C6 level; M53.82 Other specified dorsopathies, cervical region; M43.8X4 Other specified deforming dorsopathies, thoracic region; M40.294 Other kyphosis, thoracic region; M47.894 Other spondylosis, thoracic region
CPT/HCPCS: 72141; 72146

== ENCOUNTER 2024-09-04 05:00 | Outpatient (RCR) | payer MEDICARE, OTHER, SELFPAY | END 2024-10-03 23:55 | disposition home or self-care (01) | LOC: TPT 05:00 | PROVIDERS: PCP Family Medicine; Visit Provider Anesthesiology Pain Medicine | DX: M47.816 Spondylosis without myelopathy or radiculopathy, lumbar region (principal) | CPT/HCPCS: 97162 ==

== ENCOUNTER → 2024-09-06 13:25 | Outpatient (BNVA) | payer MEDICARE, OTHER, SELFPAY | PROVIDERS: Family Provider Family Medicine; PCP Family Medicine; Visit Provider Orthopaedic Surgery | DX: M54.2 Cervicalgia (principal); Z09 Encounter for follow-up examination after completed treatment for conditions other than malignant neoplasm | CPT/HCPCS: 99214 ==

== ENCOUNTER → 2024-09-12 14:17 | Outpatient (BNVA) | payer MEDICARE, OTHER, SELFPAY | PROVIDERS: Family Provider Family Medicine; PCP Family Medicine; Referring Provider Orthopaedic Surgery; Visit Provider Anesthesiology Pain Medicine | DX: M54.2 Cervicalgia (principal); G89.29 Other chronic pain; M79.7 Fibromyalgia; M47.812 Spondylosis without myelopathy or radiculopathy, cervical region | CPT/HCPCS: 99204 ==

== ENCOUNTER → 2024-09-16 14:37 | Outpatient (BNVA) | payer MEDICARE, OTHER, SELFPAY | PROVIDERS: Family Provider Family Medicine; PCP Family Medicine; Visit Provider Family Medicine | DX: E11.9 Type 2 diabetes mellitus without complications (principal) | CPT/HCPCS: 80053; 80061; 82043; 83036; 85025 ==

== ENCOUNTER → 2024-09-26 09:46 | Outpatient (BNVA) | payer MEDICARE, OTHER, SELFPAY | PROVIDERS: PCP Family Medicine; Visit Provider Anesthesiology Pain Medicine | DX: M54.9 Dorsalgia, unspecified (principal); M54.2 Cervicalgia; G89.29 Other chronic pain; M47.812 Spondylosis without myelopathy or radiculopathy, cervical region | CPT/HCPCS: 99214 ==

== ENCOUNTER 2024-09-29 11:19 | Outpatient (CLI) | payer MEDICARE, OTHER, SELFPAY ==
--- NOTE | 2024-09-29 11:45 | US_ITS ---
WS: [email or web address] THYROID ULTRASOUND HISTORY: thyroid nodule COMPARISON: None available. Right lobe: 3.2 cm x 3.0 cm x 4.9 cm (w x ap x l). Volume: 22.0 cm3. Enlarged heterogeneous thyroid. There are multiple cysts and complex cysts throughout the gland. No increased vascularity. Nodule inferior RIGHT thyroid measures 1.8 x 1.1 x 1.6 cm and contains multiple small cysts. No echogenic foci. Left lobe: 1.9 cm x 1.8 cm x 5.6 cm (w x ap x l). Volume: 9.0 cm3. Mildly enlarged heterogeneous gland. Multiple scattered cysts and small hypoechoic nodules. Largest nodule inferior gland measures 1.1 x 0.6 x 1.1 cm. Isthmus: 0.2 cm. US/US thyroid [id number] IMPRESSION: 1. TI-RADS 3; bilateral thyroid nodules. Recommend yearly evaluation. Biopsy r ecommended if nodules become greater than or equal to 2.5 cm. 2. Multinodular goiter.
== END 2024-09-29 11:20 | disposition home or self-care (01) ==
PROVIDERS: PCP Family Medicine; Visit Provider Family Medicine
DX: E04.2 Nontoxic multinodular goiter (principal)
CPT/HCPCS: 76536

== ENCOUNTER 2024-10-04 05:00 | Outpatient (RCR) | payer MEDICARE, OTHER, SELFPAY | END 2024-11-03 23:59 | disposition home or self-care (01) | LOC: TPT 05:00 | PROVIDERS: PCP Family Medicine; Visit Provider Anesthesiology Pain Medicine | DX: M47.816 Spondylosis without myelopathy or radiculopathy, lumbar region (principal) | CPT/HCPCS: 97110 ==

== ENCOUNTER 2024-10-04 07:41 | Outpatient (CLI) | payer MEDICARE, OTHER, SELFPAY ==
--- NOTE | 2024-10-04 08:00 | MR_ITS ---
WS: [email or web address] MRCP (MAGNETIC RESONANCE CHOLANGIOPANCREATOGRAPHY) HISTORY: pancreatic cyst COMPARISON: 06/08/2025 CT. TECHNIQUE: Multiple sequences are performed to evaluate the intra and extrahepatic ducts. Gallbladder has been surgically removed. Common bile duct is normal caliber measuring 5.5 mm. Normal pancreatic duct. No Intermatic duct dilatation. Diffuse moderate hepatic steatosis throughout the liver. No adrenal mass. Normal spleen. No pericardial effusions. Lung bases are clear. No ascites. No adenopathy. Visualized kidneys are negative. Pancreas will be better evaluated on a dedicated pancreatic MRI with thinner cuts. MR/MR MRCP [id number] IMPRESSION: 1. Normal common bile duct. No dilatation. 2. Prior cholecystectomy. 3. Hepatic steatosis.
--- NOTE | 2024-10-04 08:45 | MR_ITS ---
WS: [email or web address] MRI ABDOMEN WITH AND WITHOUT CONTRAST. COMPARISON: 06/08/2024 Multiplanar, multisequence imaging is performed with and without contrast. MultiHance 17 cc IV. History: Pancreatic cyst. No change in size of the well-circumscribed 5 mm cyst in the distal pancreatic tail as compared to 06/08/2024. Cyst does not enhance. No wall enhancement. No pancreatic duct dilatation. Common bile duct is normal size. No pancreatitis. Normal size liver. Mild hepatic steatosis. Normal size spleen. Gallbladder has been removed. Kidneys as visualized are negative. Normal size aorta. No ascites or pleural effusions. MR/MR abdomen wo/w con* [id number] IMPRESSION: 1. Reidentified cystic mass in the pancreatic tail measuring 5 mm with no enha ncement. No additional pancreatic abnormality. Differential includes serous cys tic neoplasm or IPMN. Likely benign. Consider yearly MRI evaluations of the hernandez creas with and without contrast. 2. Normal pancreatic duct.
[2024-10-04] MEDS: gadobenate dimeglumine 20 mL vial 17 ML IV (10:15)
== END 2024-10-04 07:42 | disposition home or self-care (01) ==
LOC: RAD 07:41
PROVIDERS: PCP Family Medicine; Visit Provider Family Medicine
DX: K86.2 Cyst of pancreas (principal); K76.0 Fatty (change of) liver, not elsewhere classified; Z90.49 Acquired absence of other specified parts of digestive tract
CPT/HCPCS: 74181; 74183

== ENCOUNTER 2024-11-04 05:00 | Outpatient (RCR) | payer MEDICARE, OTHER, SELFPAY | END 2024-12-04 23:59 | disposition home or self-care (01) | LOC: TPT 05:00 | PROVIDERS: Family Provider Family Medicine; PCP Family Medicine; Visit Provider Anesthesiology Pain Medicine | DX: M47.816 Spondylosis without myelopathy or radiculopathy, lumbar region (principal) | CPT/HCPCS: 97110 ==

== ENCOUNTER → 2024-12-22 12:36 | Outpatient (BNVA) | payer MEDICARE, OTHER, SELFPAY | PROVIDERS: Family Provider Family Medicine; PCP Family Medicine; Visit Provider Orthopaedic Surgery | DX: M99.61 Osseous and subluxation stenosis of intervertebral foramina of cervical region (principal); M99.63 Osseous and subluxation stenosis of intervertebral foramina of lumbar region | CPT/HCPCS: 99213 ==

== ENCOUNTER → 2024-12-30 13:10 | Outpatient (BNVA) | payer MEDICARE, OTHER, SELFPAY | PROVIDERS: Family Provider Family Medicine; PCP Family Medicine; Visit Provider Family Medicine | DX: E11.9 Type 2 diabetes mellitus without complications (principal) | CPT/HCPCS: 80048; 83036 ==

== ENCOUNTER → 2025-02-14 12:34 | Outpatient (BNVA) | payer MEDICARE, OTHER, SELFPAY | PROVIDERS: Family Provider Family Medicine; PCP Family Medicine; Visit Provider Nurse Practitioner Family | DX: L82.1 Other seborrheic keratosis (principal); L81.4 Other melanin hyperpigmentation; L57.8 Other skin changes due to chronic exposure to nonionizing radiation; L82.0 Inflamed seborrheic keratosis; R20.8 Other disturbances of skin sensation; Z78.9 Other specified health status; Z53.8 Procedure and treatment not carried out for other reasons; D22.5 Melanocytic nevi of trunk; D48.5 Neoplasm of uncertain behavior of skin; L57.0 Actinic keratosis | CPT/HCPCS: 11102; 17000; 17110; 99203 ==

== ENCOUNTER → 2025-03-06 09:02 | Outpatient (BNVA) | payer MEDICARE, OTHER, SELFPAY | PROVIDERS: Family Provider Family Medicine; PCP Family Medicine; Visit Provider Nurse Practitioner Family | DX: L57.8 Other skin changes due to chronic exposure to nonionizing radiation (principal); L81.4 Other melanin hyperpigmentation; D04.39 Carcinoma in situ of skin of other parts of face; L57.0 Actinic keratosis | CPT/HCPCS: 17000; 17280; 99213 ==

== ENCOUNTER → 2025-03-20 10:28 | Outpatient (BNVA) | payer MEDICARE, OTHER, SELFPAY | PROVIDERS: Family Provider Family Medicine; PCP Family Medicine; Visit Provider Anesthesiology Pain Medicine | DX: M16.0 Bilateral primary osteoarthritis of hip (principal); M25.752 Osteophyte, left hip; M61.451 Other calcification of muscle, right thigh; K59.00 Constipation, unspecified | CPT/HCPCS: 73502; 99214 ==

== ENCOUNTER → 2025-04-03 13:31 | Outpatient (BNVA) | payer MEDICARE, OTHER, SELFPAY | PROVIDERS: Family Provider Family Medicine; PCP Family Medicine; Visit Provider Family Medicine | DX: E11.9 Type 2 diabetes mellitus without complications (principal) | CPT/HCPCS: 80053; 83036 ==

== ENCOUNTER 2025-04-04 13:16 | Outpatient (CLI) | payer MEDICARE, OTHER, SELFPAY ==
--- NOTE | 2025-04-04 13:45 | MR_ITS ---
WS: [email or web address] MRI LUMBAR SPINE NONCONTRAST HISTORY: M54.16 - Radiculopathy, lumbar region COMPARISON: None available. TECHNIQUE: Sagittal and axial multisequence imaging is submitted. Degenerative disc disease and osteophytes in the cervical and thoracic spine. At C7-T1 there is a small central disc or osteophyte contacting the ventral cervical cord. Mild straightening of the normal lumbar lordosis. Disc spaces are all narrowed and desiccated. No significant narrowing at L2-3 and L4-5. Conus terminates normally at L1-2 disc level. L1-L2: Mild facet arthritis. No stenosis. L2-L3: Mild annular disc bulging, osteophytic ridging and facet arthritis. Small central disc protrusion. Additional broad-based disc protrusion LEFT foramen. Mild central, bilateral subarticular recess and moderate foraminal stenosis, LEFT greater than RIGHT. There is disc contacting the LEFT exiting L2 nerve root. L3-L4: Diffuse disc bulging, osteophytic ridging, ligamentum flavum and facet arthritis. Moderate central, bilateral subarticular recess and bilateral foraminal stenosis. There is significant disc contact on the traversing RIGHT L4 nerve root. L4-L5: Marked annular disc bulging with asymmetric disc bulging. Disc bulges greatest to the RIGHT. Marked ligamentum flavum and facet arthritis. Moderate to severe central, bilateral subarticular recess and RIGHT foraminal stenosis. Mild LEFT foraminal stenosis. There is disc and osteophyte contacting the exiting and traversing nerve roots, greater on the RIGHT. L5-S1: Diffuse disc bulging with facet joint arthritis. Small LEFT foraminal disc protrusion does not appear to be contacting the nerve root. Paravertebral soft tissues are normal. MR/MR lumbar spine wo con* [id number] IMPRESSION: 1. Multilevel degenerative disc disease with osteophytes and facet arthritis a nd stenoses. 2. Moderate to severe central, bilateral subarticular recess and RIGHT foramin al stenosis at L4-5. Moderate LEFT foraminal stenosis. Signal most significant encroachment upon the RIGHT exiting and traversing nerve roots. 3. Moderate central, bilateral subarticular recess and foraminal stenosis at L 3-4. There is significant disc contacting the traversing RIGHT L4 nerve root. 4. Broad-based LEFT foraminal disc protrusion and a small central disc protrus ion at L2-3. Mild central, bilateral subarticular recess and moderate foraminal stenosis, LEFT greater than RIGHT. Disc contacts the LEFT exiting L2 nerve yulisa t. 5. Small LEFT foraminal disc protrusion at L5-S1.
== END 2025-04-04 13:17 | disposition home or self-care (01) ==
PROVIDERS: Family Provider Family Medicine; PCP Family Medicine; Visit Provider Anesthesiology Pain Medicine
DX: M47.26 Other spondylosis with radiculopathy, lumbar region (principal); M47.27 Other spondylosis with radiculopathy, lumbosacral region; M51.16 Intervertebral disc disorders with radiculopathy, lumbar region; M48.061 Spinal stenosis, lumbar region without neurogenic claudication; M51.17 Intervertebral disc disorders with radiculopathy, lumbosacral region
CPT/HCPCS: 72148